=== PATIENT | female | born 1955 | race Caucasian/White ===

== ENCOUNTER 2016-11-06 12:28 | Inpatient (IN) ==
[2016-11-06] MEDS ORDERED: ASPIRIN PO STA (14:19)
[2016-11-06] MEDS ORDERED: NITROGLYCERIN TOP ONE (14:21)
[2016-11-06 14:52] LABS: ALLEN TEST YES; BE -0.8 mmoll (-3.0-3.0); BLOOD TYPE ARTERIAL; DRAW SITE R RADIAL; METHB 0.7 % (0.0-1.5); O2(CT) 16.5 mL/dL (15.0-23.0); PCO2(98.6) 41 mmHg (35-45); PO2(98.6) 52 mmHg (60-100); SAMPLE BLOOD; SAO2 89.1 % (95.0-100.0); THB 13.6 g/dL (11.5-17.4); pH(98.6) 7.38 (7.35-7.45)
[2016-11-06 14:54] LABS: MODALITY CANNULA
[2016-11-06] MEDS: PROTONIX IV SCH (15:22)
[2016-11-06] MEDS: SODIUM CHLORIDE 0.9% INJ SCH (15:22)
[2016-11-06] MEDS: LOVENOX SUBQ SCH (15:22)
[2016-11-06] MEDS: MORPHINE IV PRN ×2 (15:22→19:28)
[2016-11-06 16:20] LABS: MANUAL DIFF NEEDED? NO
[2016-11-06 16:29] LABS: BASO% 0.2 % (0.0-0.8); EOS# 0.02 X1000 (0.0-0.7); EOS% 0.2 % (0.0-10.0); HEMATOCRIT 38.2 % (37.0-47.0); HEMOGLOBIN 12.7 g/dL (12.0-16.0); IMM GRAN# 0.05 X1000 (0.0-0.04); IMM GRAN% 0.4 % (0.0-0.5); LYMPH# 1.33 X1000 (1.2-3.4); LYMPH% 10.6 % (20.5-51.1); MCH 30.2 PG (27-31); MCHC 33.2 g/dL (33-37); MCV 90.7 FL (81-99); MONO# 0.82 X1000 (0.11-0.59); MONO% 6.5 % (1.7-9.3); MPV 8.9 FL (7.4-10.4); NEUT% 82.1 % (42.2-75.2); PLT 316 X1000 (130-400); RBC 4.21 XMIL (4.2-5.4)
[2016-11-06 16:36] LABS: INR 1.02; PROTIME 10.7 Seconds (9.2-11.7)
[2016-11-06 16:42] LABS: AGAP 18; ALBUMIN 3.9 g/dL (3.5-5.0); ALKALINE PHOSPHATASE 92 U/L (32-104); BUN 10 mg/dL (8-22); CALCIUM 9.4 mg/dL (8.8-10.2); CHLORIDE 99 mmol/L (98-107); CK PROFILE 114 U/L (24-173); COSMO 281; GOT 20 U/L (10-30); GPT 16 U/L (10-36); MAGNESIUM 1.4 mg/dL (1.5-2.7); POTASSIUM 4.1 mmol/L (3.5-5.1); SODIUM 139 mmol/L (136-145); TCO2 22 mmol/L (25-35); TOTAL BILIRUBIN 0.23 mg/dL (0.20-1.00); TOTAL PROTEIN 7.3 g/dL (6.3-8.3)
[2016-11-06] MEDS: LOPRESSOR IV SCH ×2 (17:42→17:43)
[2016-11-06] MEDS ORDERED: MAGNESIUM SULFATE 2 GM/S.W.I. 2 GM/50 ML IVPB IV ONE (21:16)
[2016-11-06] MEDS: DESYREL PO SCH (21:18)
[2016-11-06] MEDS: NEURONTIN PO SCH (21:18)
[2016-11-06] MEDS: REMERON PO SCH (21:18)
[2016-11-06] MEDS: TOPROL XL PO SCH (21:18)
[2016-11-06] MEDS: HUMULIN R SUBQ SCH (22:54)
[2016-11-06] MEDS: NICODERM PATCH TD SCH (23:08)
[2016-11-07] MEDS: MORPHINE IV PRN ×6 (00:02→21:08)
[2016-11-07] MEDS: LOVENOX SUBQ SCH ×2 (02:18→13:51)
[2016-11-07 05:06] LABS: MANUAL DIFF NEEDED? NO
[2016-11-07 05:10] LABS: BASO% 0.4 % (0.0-0.8); EOS# 0.05 X1000 (0.0-0.7); EOS% 0.5 % (0.0-10.0); HEMATOCRIT 38.8 % (37.0-47.0); HEMOGLOBIN 12.9 g/dL (12.0-16.0); IMM GRAN# 0.03 X1000 (0.0-0.04); IMM GRAN% 0.3 % (0.0-0.5); LYMPH# 1.56 X1000 (1.2-3.4); LYMPH% 15.5 % (20.5-51.1); MCH 30.5 PG (27-31); MCHC 33.2 g/dL (33-37); MCV 91.7 FL (81-99); MONO# 0.68 X1000 (0.11-0.59); MONO% 6.8 % (1.7-9.3); MPV 8.8 FL (7.4-10.4); NEUT% 76.5 % (42.2-75.2); PLT 367 X1000 (130-400); RBC 4.23 XMIL (4.2-5.4)
[2016-11-07 05:36] LABS: AGAP 19; BUN 7 mg/dL (8-22); CALCIUM 9.4 mg/dL (8.8-10.2); CHLORIDE 96 mmol/L (98-107); CK PROFILE 171 U/L (24-173); COSMO 283; HDL 87 mg/dL (45-65); LDL 101 mg/dL; POTASSIUM 3.9 mmol/L (3.5-5.1); SODIUM 141 mmol/L (136-145); TCO2 26 mmol/L (25-35); TRIGLYCERIDES 186 mg/dL (35-135); VLDL 37 mg/dL
[2016-11-07 06:02] LABS: ALLEN TEST YES; BE 3.8 mmoll (-3.0-3.0); BLOOD TYPE ARTERIAL; DRAW SITE R RADIAL; METHB 0.9 % (0.0-1.5); O2(CT) 16.6 mL/dL (15.0-23.0); PCO2(98.6) 49 mmHg (35-45); PO2(98.6) 67 mmHg (60-100); SAMPLE BLOOD; SAO2 93.4 % (95.0-100.0); THB 12.9 g/dL (11.5-17.4); pH(98.6) 7.39 (7.35-7.45)
[2016-11-07 06:03] LABS: MODALITY CANNULA
[2016-11-07] MEDS: HUMULIN R SUBQ SCH ×4 (06:04→21:09)
[2016-11-07] MEDS: TOPROL XL PO SCH ×2 (08:56→21:08)
[2016-11-07] MEDS: VICON-C PO SCH (08:56)
[2016-11-07] MEDS: NICODERM PATCH TD SCH (08:56)
[2016-11-07] MEDS: NEURONTIN PO SCH ×2 (08:57→21:08)
[2016-11-07] MEDS ORDERED: DOBUTAMINE 250 MG/D5W 250 MG/250 ML IV.SOLN ONE (10:29)
[2016-11-07] MEDS ORDERED: ATROPINE SYRINGE ONE (11:20)
[2016-11-07] MEDS: PROTONIX IV SCH (13:51)
[2016-11-07] MEDS: DESYREL PO SCH (21:08)
[2016-11-07] MEDS: REMERON PO SCH (21:08)
[2016-11-07] MEDS ORDERED: ZOFRAN ODT PO PRN (21:21)
[2016-11-07] MEDS ORDERED: ZOFRAN ONE (21:27)
[2016-11-08] MEDS: MORPHINE IV PRN ×6 (01:32→22:58)
[2016-11-08] MEDS: LOVENOX SUBQ SCH (01:33)
[2016-11-08] MEDS: HUMULIN R SUBQ SCH ×4 (06:06→21:02)
[2016-11-08] MEDS: NICODERM PATCH TD SCH (08:22)
[2016-11-08] MEDS: VICON-C PO SCH (08:22)
[2016-11-08] MEDS: NEURONTIN PO SCH ×2 (08:22→20:57)
[2016-11-08] MEDS: TOPROL XL PO SCH ×2 (08:22→20:57)
[2016-11-08] MEDS: LEVAQUIN 500 MG/D5W 500 MG/100 ML IVPB IV SCH (10:06)
[2016-11-08] MEDS: SODIUM CHLORIDE 0.9% INJ SCH (14:49)
[2016-11-08] MEDS: PROTONIX IV SCH (14:49)
[2016-11-08] MEDS: VENTOLIN HFA INH PRN (16:11)
[2016-11-08] MEDS: GLUCOPHAGE PO SCH (17:27)
[2016-11-08] MEDS ORDERED: ZOFRAN ONE (20:52)
[2016-11-08] MEDS: REMERON PO SCH (20:56)
[2016-11-08] MEDS: CATAPRES PO SCH (20:57)
[2016-11-08] MEDS: DESYREL PO SCH (20:57)
[2016-11-08] MEDS: SOLU-MEDROL IV SCH (20:57)
[2016-11-08] MEDS: TRANDATE PO SCH (20:57)
[2016-11-08] MEDS: ZOLOFT PO SCH (20:57)
[2016-11-09] MEDS: MORPHINE IV PRN ×6 (03:03→23:19)
[2016-11-09] MEDS: HUMULIN R SUBQ SCH ×4 (06:48→21:06)
[2016-11-09] MEDS: BREO ELLIPTA 100/25 MCG INH INH SCH (07:50)
[2016-11-09] MEDS: VENTOLIN HFA INH PRN (07:50)
[2016-11-09] MEDS: SPIRIVA INH SCH (07:51)
[2016-11-09] MEDS: SOLU-MEDROL IV SCH ×2 (08:46→21:04)
[2016-11-09] MEDS: NEURONTIN PO SCH ×2 (08:46→21:04)
[2016-11-09] MEDS: ADALAT CC PO SCH (08:46)
[2016-11-09] MEDS: JANUVIA PO SCH (08:47)
[2016-11-09] MEDS: LOVENOX SUBQ SCH (08:48)
[2016-11-09] MEDS: TOPROL XL PO SCH ×2 (08:48→21:04)
[2016-11-09] MEDS: NICODERM PATCH TD SCH (08:48)
[2016-11-09] MEDS: VICON-C PO SCH (08:48)
[2016-11-09] MEDS: GLUCOPHAGE PO SCH ×2 (08:48→18:12)
[2016-11-09] MEDS: LEVAQUIN 500 MG/D5W 500 MG/100 ML IVPB IV SCH (08:48)
[2016-11-09] MEDS: CATAPRES PO SCH ×2 (08:48→21:05)
[2016-11-09] MEDS: TRANDATE PO SCH ×2 (08:48→21:04)
[2016-11-09] MEDS: ASPIRIN EC PO SCH (08:48)
[2016-11-09] MEDS: LOXITANE PO SCH (08:49)
[2016-11-09] MEDS: TESSALON PO SCH ×2 (15:36→21:09)
[2016-11-09] MEDS: SODIUM CHLORIDE 0.9% INJ SCH (15:37)
[2016-11-09] MEDS: PROTONIX IV SCH (15:37)
[2016-11-09] MEDS: DESYREL PO SCH (21:04)
[2016-11-09] MEDS: ZOLOFT PO SCH (21:04)
[2016-11-09] MEDS: REMERON PO SCH (21:04)
[2016-11-10] MEDS: MORPHINE IV PRN ×5 (03:40→20:49)
[2016-11-10] MEDS: HUMULIN R SUBQ SCH ×4 (06:14→20:49)
[2016-11-10] MEDS: GLUCOPHAGE PO SCH ×2 (07:51→16:40)
[2016-11-10] MEDS: JANUVIA PO SCH (07:59)
[2016-11-10] MEDS: NICODERM PATCH TD SCH (07:59)
[2016-11-10] MEDS: VICON-C PO SCH (07:59)
[2016-11-10] MEDS: CATAPRES PO SCH ×2 (07:59→20:49)
[2016-11-10] MEDS: ADALAT CC PO SCH (07:59)
[2016-11-10] MEDS: LEVAQUIN 500 MG/D5W 500 MG/100 ML IVPB IV SCH ×2 (07:59→08:42)
[2016-11-10] MEDS: SOLU-MEDROL IV SCH ×2 (07:59→20:49)
[2016-11-10] MEDS: TESSALON PO SCH ×3 (07:59→16:40)
[2016-11-10] MEDS: ASPIRIN EC PO SCH (07:59)
[2016-11-10] MEDS: NEURONTIN PO SCH ×2 (07:59→20:49)
[2016-11-10] MEDS: LOXITANE PO SCH (08:00)
[2016-11-10] MEDS: LOVENOX SUBQ SCH (08:00)
[2016-11-10] MEDS: TOPROL XL PO SCH ×2 (08:00→20:49)
[2016-11-10] MEDS: TRANDATE PO SCH ×2 (08:00→20:48)
[2016-11-10] MEDS: SPIRIVA INH SCH (08:09)
[2016-11-10] MEDS: BREO ELLIPTA 100/25 MCG INH INH SCH (08:09)
[2016-11-10] MEDS: PROTONIX IV SCH (13:49)
[2016-11-10] MEDS: REMERON PO SCH (20:49)
[2016-11-10] MEDS: ZOLOFT PO SCH (20:49)
[2016-11-10] MEDS: DESYREL PO SCH (20:49)
[2016-11-10] MEDS: VENTOLIN HFA INH PRN (23:29)
[2016-11-11] MEDS: MORPHINE IV PRN ×2 (01:01→05:09)
[2016-11-11] MEDS: HUMULIN R SUBQ SCH (06:11)
[2016-11-11] MEDS: SPIRIVA INH SCH (07:44)
[2016-11-11] MEDS: BREO ELLIPTA 100/25 MCG INH INH SCH (07:44)
[2016-11-11] MEDS: VENTOLIN HFA INH PRN (07:44)
[2016-11-11] MEDS: LOXITANE PO SCH (08:06)
[2016-11-11] MEDS: JANUVIA PO SCH (08:07)
[2016-11-11] MEDS: TESSALON PO SCH (08:08)
[2016-11-11] MEDS: NEURONTIN PO SCH (08:09)
[2016-11-11] MEDS: ASPIRIN EC PO SCH (08:09)
[2016-11-11] MEDS: GLUCOPHAGE PO SCH (08:09)
[2016-11-11] MEDS: VICON-C PO SCH (08:09)
[2016-11-11] MEDS: LOVENOX SUBQ SCH (08:10)
[2016-11-11] MEDS: SOLU-MEDROL IV SCH (08:10)
[2016-11-11] MEDS: NICODERM PATCH TD SCH (08:10)
[2016-11-11] MEDS: LEVAQUIN 500 MG/D5W 500 MG/100 ML IVPB IV SCH (08:17)
[2016-11-11] MEDS: ADALAT CC PO SCH (08:20)
[2016-11-11] MEDS: TOPROL XL PO SCH (08:20)
[2016-11-11] MEDS: TRANDATE PO SCH (08:20)
[2016-11-11] MEDS: CATAPRES PO SCH (08:20)
[2016-12-12 09:14] VITALS: BP 152/98
== END 2016-11-11 10:30 | disposition home or self-care (01) ==
LOC: 3S 12:42
PROVIDERS: ADMIT Internal Medicine; ATTEND Internal Medicine

== ENCOUNTER 2016-11-26 11:26 | Inpatient (IN) ==
[2016-11-26] MEDS ORDERED: MORPHINE IV PRN ×2 (11:49→16:33)
[2016-11-26] MEDS: DUONEB (A & A) INH PRN ×4 (12:32→23:05)
--- NOTE | 2016-11-26 12:32 | Diag Imaging Result Doc PS360 ---
EXAM: CHEST-1 VIEW HISTORY: chest pain TECHNIQUE: Portable AP 11/09/2016 COMPARISON: None. FINDINGS: There are infiltrates in the lower left lung. These markings are more pronounced than on the prior study. The heart is not enlarged. Right lung is clear. No pleural effusions identified. IMPRESSION: Left basilar infiltrates superimposed upon fibrosis or atelectasis. Follow-up and lateral recommended.. Electronically signed by Sami Figueroa 11/26/2016 12:30 PM
[2016-11-26 12:39] LABS: MANUAL DIFF NEEDED? NO
[2016-11-26 12:47] LABS: BASO% 0.2 % (0.0-0.8); EOS% 0.6 % (0.0-10.0); HEMOGLOBIN 11.7 g/dL (12.0-16.0); IMM GRAN# 0.08 X1000 (0.0-0.04); IMM GRAN% 0.5 % (0.0-0.5); LYMPH# 1.29 X1000 (1.2-3.4); LYMPH% 8.2 % (20.5-51.1); MCH 29.9 PG (27-31); MCHC 32.5 g/dL (33-37); MCV 92.1 FL (81-99); MONO# 0.89 X1000 (0.11-0.59); MONO% 5.6 % (1.7-9.3); MPV 9.5 FL (7.4-10.4); NEUT% 84.9 % (42.2-75.2); PLT 318 X1000 (130-400); RBC 3.91 XMIL (4.2-5.4)
[2016-11-26 12:53] LABS: AGAP 16; ALBUMIN 3.9 g/dL (3.5-5.0); ALKALINE PHOSPHATASE 91 U/L (32-104); BUN 12 mg/dL (8-22); CALCIUM 9.1 mg/dL (8.8-10.2); CHLORIDE 90 mmol/L (98-107); COSMO 266; GOT 26 U/L (10-30); GPT 13 U/L (10-36); POTASSIUM 4.7 mmol/L (3.5-5.1); SODIUM 127 mmol/L (136-145); TCO2 21 mmol/L (25-35); TOTAL BILIRUBIN 0.16 mg/dL (0.20-1.00); TOTAL PROTEIN 6.7 g/dL (6.3-8.3)
[2016-11-26] MEDS ORDERED: ASPIRIN PO SCH (13:00)
[2016-11-26] MEDS ORDERED: ASPIRIN ONE (13:06)
[2016-11-26] MEDS: ASPIRIN EC PO SCH (13:17)
--- NOTE | 2016-11-26 13:55 | EKG Report ---
Test Performed on : 11/26/2016 11:38:16 AM Test Reason : chestpain Blood Pressure : / mmHG Vent. Rate : 080 BPM Atrial Rate : 080 BPM P-R Int : 204 ms QRS Dur : 106 ms QT Int : 372 ms P-R-T Axes : 077 057 089 degrees QTc Int : 429 ms Normal sinus rhythm. T wave abnormality, consider lateral ischemia Abnormal ECG When compared with ECG of 10-NOV-2016 17:07, No significant change was found Confirmed by Obed Barfield MD ([id number]) on 11/26/2016 8:37:39 PM
--- NOTE | 2016-11-26 16:04 | CONSULTATION ---
DATE OF CONSULTATION: 11/26/2016 INDICATION FOR THE CONSULTATION: Chest pain. HISTORY OF PRESENT ILLNESS: Ms. Pemberton is a 61-year-old white female with a history of hypertension and diabetes. She presented to Dr. José's office today with complaints of chest discomfort, recent bouts of subjective fevers at home as well as productive cough for the last 2-3 days. She reports an admission earlier in this month with similar complaints in which she had a myocardial perfusion scan as well as an echocardiogram performed that were unremarkable. Here she has had a chest x-ray that shows what appears to be some left basilar infiltrates in addition to an elevated white count. She has a significant history of COPD. She denies any orthopnea. She denies any exertional chest discomfort. PAST MEDICAL HISTORY: 1. Significant for COPD. 2. History of metabolic syndrome. 3. Hypertension. 4. Diabetes. 5. Depression/anxiety. 6. Reflux disease. 7. Hyperlipidemia. 8. Chronic back pain. SOCIAL HISTORY: She smokes roughly a pack a day and has so for about 40 years. No alcohol use. FAMILY HISTORY: Significant for hypertension. REVIEW OF SYSTEMS: A 10 system review of systems is negative except for those things mentioned in HPI. PHYSICAL EXAMINATION: Heart rate most recently is 64. She has been afebrile during this hospitalization. Her most recent blood pressure reading is 131/71.General: She is in no acute distress. HEENT: Oropharynx is moist. Poor dentition. Eye examination is pink conjunctivae, white sclerae. Neck: Examination shows no obvious thyromegaly or thyroid tenderness. Cardiovascular: She sounds to be in a regular rate and rhythm. She has no murmurs, she has no S3. No lower extremity edema. Chest: Exam is significant for fairly prominent bilateral end- expiratory wheezes with some mild left basilar rales. No increased work of breathing. Abdomen: Soft, nontender, nondistended. She has no obvious organomegaly. Skin Exam: Warm and dry throughout without any rashes. Neurologic: Moving all extremities well. Cranial nerves 2 through 12 are intact without any sensation deficits. Psychiatric: Alert, oriented, pleasant. She has normal mood and affect. PERTINENT DATA: Her chest x-ray demonstrates a left basilar infiltrate superimposed upon a fibrotic area or atelectatic area. Nuclear scan from last hospitalization on 11/06/2016 demonstrates a normal ejection fraction, no evidence of ischemic changes identified, no evidence of transient ischemic dilatation. Her echo at that time showed what appeared to be normal LV volumes, no significant RV dilatation, EFs of 68, no segmental abnormalities. Relatively unremarkable study overall. Her EKG this visit shows sinus rhythm, some mild nonspecific ST-T changes in the lateral leads but there is a significant amount of baseline sway there. Her EKG from November 10 shows sinus rhythm, no signs of abnormalities. Her laboratory data here shows a white count of 15.7, hematocrit 36, platelet count 318,000. She does have a left shift with 85% neutrophils. Sodium is 127, potassium is 4.7. Her BUN is 12, creatinine 0.9. Her cardiac enzymes are negative. Her proBNP is 203. This falls within the normal range. ASSESSMENT: Patient with presenting chest pain with cough, subjective fevers, and a left-sided infiltrate, and an elevated white count. PLAN: Patient seems most likely to have an infectious source of her current symptoms. She has negative cardiac enzymes and normal BNP. Her EKG does not seem to show any significant abnormalities and review of her echo shows a preserved ejection fraction with no significant wall motion abnormalities. This was a limited study done on this visit. Presently, I think it is reasonable to continue to trend her cardiac enzymes but right now again, the most likely source of her issues seems to be infectious. She is on aspirin which I think is reasonable. I have no further recommendations at this time. cc: MD Ayden Muse MD
[2016-11-26] MEDS ORDERED: PNEUMOVAX 23 IM ONE (17:30)
[2016-11-26] MEDS ORDERED: SENOKOT PO PRN (18:32)
[2016-11-26] MEDS ORDERED: COLACE PO PRN (18:32)
[2016-11-26] MEDS ORDERED: VENTOLIN HFA INH PRN (18:32)
[2016-11-26] MEDS: MYCOSTATIN SUSP PO SCH ×3 (19:43→23:30)
[2016-11-26] MEDS: NS 1,000 ML IV SCH (19:45)
[2016-11-26] MEDS: SOLU-MEDROL IV SCH (19:46)
[2016-11-26] MEDS: ROCEPHIN 1 GM in NS 50 ML IV SCH (19:46)
[2016-11-26] MEDS: MORPHINE IV PRN (20:34)
[2016-11-26] MEDS: REMERON PO SCH (20:37)
[2016-11-26] MEDS: TRANDATE PO SCH (20:37)
[2016-11-26] MEDS: CATAPRES PO SCH (20:37)
[2016-11-26] MEDS: NEURONTIN PO SCH (20:38)
[2016-11-26] MEDS: PROCARDIA ER PO SCH (20:38)
[2016-11-26] MEDS: PROTONIX IV SCH (20:39)
[2016-11-26] MEDS: SODIUM CHLORIDE 0.9% INJ SCH (20:39)
[2016-11-26] MEDS: ZOLOFT PO SCH (20:39)
[2016-11-26] MEDS: BUSPAR PO SCH (20:39)
[2016-11-26] MEDS: ZITHROMAX 500 MG/NS 500 MG/250 ML IVPB IV SCH (20:40)
[2016-11-26] MEDS: GLUCOPHAGE PO SCH (20:45)
--- NOTE | 2016-11-26 22:35 | ECHO REPORT ---
ORDER DATE: 11/26/2016 INTERPRETING PHYSICIAN: Dr. Alba REQUESTING PHYSICIAN: Dr. José CLINICAL INDICATIONS: A 61-year-old female with chest pain, pneumonia. Study performed with Definity for evaluation of left ventricular function. This is a limited study. M-MODE MEASUREMENTS: Right ventricle: cm. Left ventricle end diastole: 4.3 cm. Left ventricle end systole: 2.5 cm. Posterior wall: 1.0 cm. Interventricular septum: 1.1 cm. Left atrium: cm. Aortic root: cm. SUMMARY OF 2-DIMENSIONAL IMAGING: The left ventricle is normal in size and function. Ejection fraction estimated at 73%. No wall motion abnormality is noted. With Definity injection, visualization was enhanced. The function remains excellent. The mitral valve appears to be grossly normal. The tricuspid valve appears to be also grossly normal. The right ventricle is not dilated. There is no pericardial effusion. The inferior vena cava was not seemingly dilated. IMPRESSION: In summary, this study shows excellent left ventricular systolic function. Ejection fraction 73% with no wall motion abnormality. Definity was utilized to enhance visualization of endocardium. cc: MD Toshia Frank PA Jagan Reddy, MD
[2016-11-27] MEDS: MORPHINE IV PRN ×6 (01:14→22:37)
--- NOTE | 2016-11-27 02:50 | HISTORY AND PHYSICAL ---
CHIEF COMPLAINT: Chest pain, shortness of breath, oral thrush. HISTORY OF PRESENT ILLNESS: She is a 61-year-old pleasant white female, recently discharged from the hospital, doing well until one day ago was brought in by the daughter with shortness of breath and chest pain. In my office, she is tachycardic, tachypneic, with extensive oral thrush noted. She had an abnormal EKG, subsequent negative cardiac workup and stress test during last admission. The patient was admitted to the hospital with acute COPD exacerbation, possible left lower lobe infiltrate, and also followup on this chest pain going to the left arm. If there are any changes, I would consider left heart catheterization. As a result, a hospital admission was warranted. PAST MEDICAL HISTORY: Left breast cancer since 1992, COPD, depression with anxiety, diabetes, GERD, hypertension, hyperlipidemia. PAST SURGICAL HISTORY: Tonsillectomy, gastric bypass surgery, cholecystectomy, complete hysterectomy, C-sections x2, left breast mastectomy for breast cancer in 1992. MEDICATIONS: 1. Aspirin 325 daily. 2. Breo 1 puff daily. 3. Incruse 1 puff in the evening. 4. Zanaflex 4 mg p.o. b.i.d. 5. Clonidine 0.3 p.o. b.i.d. 6. Nifedipine 60 mg daily. 7. Prilosec 40 daily. 8. Trazodone 100 daily. 9. Zoloft 150 daily. 10. Neurontin 300 p.o. b.i.d. 11. Labetalol 100 p.o. b.i.d. 12. Januvia 100 mg daily. 13. Remeron 30 mg daily. 14. Loxapine 35 daily. 15. Metformin 1000 p.o. b.i.d. ALLERGIES: Not known. SOCIAL HISTORY: , 2 kids. Lives in [place]. Smoking 1 pack a day for 40 years. No drug abuse. No alcohol. FAMILY HISTORY: Mom of stroke at 73. Father of prostate cancer at 78. Siblings: Sister had colon cancer. HEALTH MAINTENANCE: Flu vaccine in 2016. Pneumococcal vaccine in 2016. Mammography in July 2016. Colonoscopy in 2015. REVIEW OF SYSTEMS: HEENT: No headache. No vision problem. No earache. No sore throat. Had an oral thrush. Neck: No goiter. No lymphadenopathy. Cardiopulmonary: Chest pain going to the left arm. Shortness of breath, PND, orthopnea. Gastrointestinal: No nausea, vomiting, or abdominal pain. Genitourinary: No history of hesitancy, frequency. No dysuria. Neurologic: No focal symptoms or weakness. PHYSICAL EXAMINATION: VITAL SIGNS: He is afebrile. Vitals are stable. 5 feet 5 inches, 150 pounds. HEENT: Atraumatic, normocephalic. Pupils equal, reactive to light. TMs are normal. Oral thrush noted. NECK: Supple. No lymphadenopathy. JVD is elevated. CHEST: Bilateral air entry, with crackles in the left base. HEART: Tachycardic. ABDOMEN: Belly is soft, obese, nontender, protuberant. No masses palpable. EXTREMITIES: No peripheral edema or cyanosis. NEUROLOGIC: No obvious neurological deficits. INVESTIGATIONS: White cell count 15, hematocrit 36, platelets 318,000. SMA-7: Sodium 127, potassium 4.7, chloride 98, BUN 12, creatinine 0.9, glucose 295. Cardiac enzymes: ProBNP was normal. Chest x-ray: Possible infiltrate in the left lower lobe. EKG: Normal sinus, nothing acute. ASSESSMENT AND PLAN: 1. A 61-year-old white female with known chronic obstructive pulmonary disease, and oxygen dependent, admitted to the hospital with acute chronic obstructive pulmonary disease exacerbation, possible pneumonia. Plan is IV antibiotics, with Zithromax and ceftriaxone and bronchodilators. Continue on Breo and Incruse. 2. Chest pain. Negative cardiac workup recently. If she continues to have symptomatic chest pain, consider left heart catheterization. 3. Hyponatremia. IV fluids. 4. Type 2 diabetes, on metformin. Sliding scale, with insulin coverage. We will closely monitor blood sugars while she is on steroids. 5. Reconcile home medicines. 6. DVT and GI prophylaxis with Lovenox and Protonix respectively. 7. History of left breast cancer on the left side. No blood pressure or IV on the left side. 8. Will follow up. cc: Ayden José MD
[2016-11-27] MEDS: DUONEB (A & A) INH PRN ×5 (03:10→19:29)
[2016-11-27] MEDS: SOLU-MEDROL IV SCH ×3 (04:29→20:57)
[2016-11-27] MEDS: BREO ELLIPTA 100/25 MCG INH INH SCH (08:20)
[2016-11-27] MEDS: NS 1,000 ML IV SCH ×2 (08:58→20:50)
[2016-11-27] MEDS: NEURONTIN PO SCH ×3 (08:59→20:51)
[2016-11-27] MEDS: BUSPAR PO SCH ×2 (08:59→20:51)
[2016-11-27] MEDS: ASPIRIN EC PO SCH (08:59)
[2016-11-27] MEDS: PROCARDIA ER PO SCH ×2 (08:59→20:51)
[2016-11-27] MEDS: JANUVIA PO SCH (08:59)
[2016-11-27] MEDS: GLUCOPHAGE PO SCH ×2 (08:59→16:21)
[2016-11-27] MEDS: VICON-C PO SCH (08:59)
[2016-11-27] MEDS: CATAPRES PO SCH ×2 (08:59→20:51)
[2016-11-27] MEDS ORDERED: ASPIRIN EC PO SCH (09:00)
[2016-11-27] MEDS: TRANDATE PO SCH ×2 (09:00→21:01)
[2016-11-27] MEDS: LOVENOX SUBQ SCH (09:00)
[2016-11-27] MEDS: MYCOSTATIN SUSP PO SCH ×4 (09:00→20:50)
[2016-11-27] MEDS: LOXITANE PO SCH (09:00)
--- NOTE | 2016-11-27 09:32 | PROGRESS NOTE ---
DATE: 11/27/2016 SUBJECTIVE: Complains of chest pain, requiring more pain medicine. The patient was seen by Dr. Lozada. REVIEW OF SYSTEMS: Cough, wheezing. PHYSICAL EXAMINATION: Vital Signs: She is afebrile. Vitals are stable. 3% nasal cannula,89%. I's and O's positive 1460 mL. HEENT: Within normal limits. Oral thrush is improving. Chest: Rhonchi on the left side. Heart: Sounds are regular. Abdomen: Belly is soft. Abdominal scar present right upper quadrant midline. No obvious neurological deficits. INVESTIGATIONS: None reported. ASSESSMENT AND PLAN: 1. Chest pain noncardiac. Previous workup was negative. Dr. Lozada recommended no left heart catheterization. Continue on medical management for COPD. Will follow up on the labs in the morning. 2. Chronic tobacco abuse. Quit smoking. Nicotrol patches. 3. COPD with left lower lobe pneumonia. Continue IV antibiotics, IV steroids, bronchodilators. 4. DVT, GI prophylaxis. As per the order sheet. Level of documentation 25 minutes. cc: Ayden José MD
[2016-11-27] MEDS: HUMULIN R SUBQ SCH ×3 (10:41→20:52)
[2016-11-27] MEDS: NICODERM PATCH TD PRN (10:43)
[2016-11-27] MEDS: INCRUSE ELLIPTA INH SCH (19:29)
[2016-11-27] MEDS: PROTONIX IV SCH (20:48)
[2016-11-27] MEDS: ROCEPHIN 1 GM in NS 50 ML IV SCH (20:49)
[2016-11-27] MEDS: ZITHROMAX 500 MG/NS 500 MG/250 ML IVPB IV SCH (20:50)
[2016-11-27] MEDS: ZOLOFT PO SCH (20:51)
[2016-11-27] MEDS: REMERON PO SCH (20:51)
[2016-11-28] MEDS: MORPHINE IV PRN ×6 (03:14→22:23)
[2016-11-28] MEDS: SOLU-MEDROL IV SCH ×4 (03:14→20:45)
[2016-11-28 05:16] LABS: BASO% 0.1 % (0.0-0.8); HEMATOCRIT 32.6 % (37.0-47.0); HEMOGLOBIN 10.6 g/dL (12.0-16.0); IMM GRAN# 0.11 X1000 (0.0-0.04); IMM GRAN% 0.8 % (0.0-0.5); LYMPH# 0.71 X1000 (1.2-3.4); LYMPH% 5.3 % (20.5-51.1); MANUAL DIFF NEEDED? YES; MCH 30.2 PG (27-31); MCHC 32.5 g/dL (33-37); MCV 92.9 FL (81-99); MONO# 0.23 X1000 (0.11-0.59); MONO% 1.7 % (1.7-9.3); MPV 8.9 FL (7.4-10.4); NEUT% 92.1 % (42.2-75.2); PLT 279 X1000 (130-400); RBC 3.51 XMIL (4.2-5.4)
[2016-11-28 05:38] LABS: LYMPHS 4 % (21-51); MONO 1 % (1-9)
[2016-11-28 05:59] LABS: AGAP 12; BUN 23 mg/dL (8-22); CALCIUM 9.2 mg/dL (8.8-10.2); CHLORIDE 101 mmol/L (98-107); CK PROFILE 24 U/L (24-173); COSMO 291; POTASSIUM 5.4 mmol/L (3.5-5.1); SODIUM 139 mmol/L (136-145); TCO2 26 mmol/L (25-35)
[2016-11-28] MEDS: HUMULIN R SUBQ SCH ×4 (06:38→20:45)
[2016-11-28] MEDS: INCRUSE ELLIPTA INH SCH (07:39)
[2016-11-28] MEDS: BREO ELLIPTA 100/25 MCG INH INH SCH ×2 (07:40→19:15)
[2016-11-28] MEDS: DUONEB (A & A) INH PRN ×4 (07:40→19:36)
[2016-11-28] MEDS: TRANDATE PO SCH ×2 (08:05→20:47)
[2016-11-28] MEDS: NEURONTIN PO SCH ×3 (08:05→20:48)
[2016-11-28] MEDS: GLUCOPHAGE PO SCH ×2 (08:05→16:05)
[2016-11-28] MEDS: NICODERM PATCH TD PRN (08:05)
[2016-11-28] MEDS: JANUVIA PO SCH (08:05)
[2016-11-28] MEDS: MYCOSTATIN SUSP PO SCH ×4 (08:05→20:45)
[2016-11-28] MEDS: ASPIRIN EC PO SCH (08:05)
[2016-11-28] MEDS: LOXITANE PO SCH (08:06)
[2016-11-28] MEDS: BUSPAR PO SCH ×2 (08:06→20:49)
[2016-11-28] MEDS: PROCARDIA ER PO SCH ×2 (08:06→20:47)
[2016-11-28] MEDS: LOVENOX SUBQ SCH (08:06)
[2016-11-28] MEDS: VICON-C PO SCH (08:06)
[2016-11-28] MEDS: CATAPRES PO SCH ×2 (08:06→20:48)
[2016-11-28] MEDS: NS 1,000 ML IV SCH (08:07)
--- NOTE | 2016-11-28 08:47 | Diag Imaging Result Doc PS360 ---
EXAM: CHEST-2 VIEWS HISTORY: SOB TECHNIQUE: PA and Lateral chest x-ray COMPARISON: 11/26/2016 FINDINGS: There is increasing left lower lobe airspace disease and left pleural effusion compared with prior study. There are surgical clips anteriorly in the midline. There is some minimal strandy density at the right lung base. The pulmonary vasculature is not congested. There is cardiomegaly. IMPRESSION: Increasing left lower lobe consolidation and effusion. Minimal infiltrate right lung base. Electronically signed by Yaneth Aceves 11/28/2016 8:45 AM
[2016-11-28 09:24] LABS: ALLEN TEST YES; BE -2.1 mmoll (-3.0-3.0); BLOOD TYPE ARTERIAL; DRAW SITE R RADIAL; METHB 0.2 % (0.0-1.5); O2(CT) 14.1 mL/dL (15.0-23.0); PCO2(98.6) 47 mmHg (35-45); PO2(98.6) 62 mmHg (60-100); SAMPLE BLOOD; SAO2 93.2 % (95.0-100.0); THB 10.9 g/dL (11.5-17.4); pH(98.6) 7.32 (7.35-7.45)
[2016-11-28 09:25] LABS: MODALITY CANNULA
--- NOTE | 2016-11-28 18:57 | PROGRESS NOTE ---
DATE: 11/28/2016 SUBJECT: The patient is out of bed and smoking and eating very well. Pulse oximetry 80%. EXAMINATION: Vital signs: Afebrile. Vitals are stable. HEENT: Within normal limits. Neck: Supple. Lungs: Decreased breath sounds left base. Scattered wheezing. Belly: Soft. Multiple scars noted. Extremities: No peripheral edema, cyanosis. Neuro: No obvious neurological deficits. INVESTIGATIONS: CBC, white cell count 13, hematocrit 32, platelet 279,000. ABG pH is 7.32, pCO2 47, PO2 62. SMA 7. Sodium 139, potassium 5.4, chloride 101, BUN 23, creatinine 0.7, glucose 277. Cardiac enzymes are normal. ProBNP 1294. Chest x-ray left lower lobe consolidation. Blood cultures were negative. ASSESSMENT AND PLAN: 1. Chest pain ruled out for myocardial infarction. Previous cardiac workup was negative. The patient daughter wants left heart catheterization. Currently no signs of myocardial infarction. 2. Chronic obstructive pulmonary disease on oxygen with left lower lobe pneumonia. Continue IV ceftriaxone and Zithromax and decrease IV steroids. 3. Oral thrush better . Eating very well. Discontinue IV fluids. 4. Status post left breast mastectomy stable. 5. Deep vein thrombosis, gastrointestinal prophylaxis as per the order sheet. 6. Tobacco abuse. Nicotrol patches. 7. Will reassess on Thursday. Repeat the chest x-ray and CBC, SMA 7. Discussed with the family. LEVEL OF DOCUMENTATION: 25 minutes. cc: Ayden José MD
[2016-11-28] MEDS: ZITHROMAX 500 MG/NS 500 MG/250 ML IVPB IV SCH (20:44)
[2016-11-28] MEDS: SODIUM CHLORIDE 0.9% INJ SCH (20:47)
[2016-11-28] MEDS: PROTONIX IV SCH (20:47)
[2016-11-28] MEDS: REMERON PO SCH (20:48)
[2016-11-28] MEDS: ZOLOFT PO SCH (20:48)
[2016-11-29] MEDS: ROCEPHIN 1 GM in NS 50 ML IV SCH ×2 (00:11→20:14)
[2016-11-29] MEDS: MORPHINE IV PRN ×6 (02:51→22:34)
[2016-11-29] MEDS: SOLU-MEDROL IV SCH ×3 (03:45→20:14)
[2016-11-29] MEDS: HUMULIN R SUBQ SCH ×3 (06:39→16:06)
[2016-11-29] MEDS: DUONEB (A & A) INH PRN ×5 (07:55→23:20)
[2016-11-29] MEDS: INCRUSE ELLIPTA INH SCH (07:55)
[2016-11-29] MEDS: ASPIRIN EC PO SCH (08:04)
[2016-11-29] MEDS: BUSPAR PO SCH ×2 (08:04→20:16)
[2016-11-29] MEDS: CATAPRES PO SCH ×2 (08:04→20:16)
[2016-11-29] MEDS: NEURONTIN PO SCH ×3 (08:04→20:16)
[2016-11-29] MEDS: LOVENOX SUBQ SCH (08:04)
[2016-11-29] MEDS: GLUCOPHAGE PO SCH ×2 (08:04→16:06)
[2016-11-29] MEDS: JANUVIA PO SCH (08:04)
[2016-11-29] MEDS: VICON-C PO SCH (08:04)
[2016-11-29] MEDS: NICODERM PATCH TD PRN (08:04)
[2016-11-29] MEDS: TRANDATE PO SCH ×2 (08:04→20:15)
[2016-11-29] MEDS: LOXITANE PO SCH (08:05)
[2016-11-29] MEDS: MYCOSTATIN SUSP PO SCH ×4 (08:06→20:13)
[2016-11-29] MEDS: PROCARDIA ER PO SCH ×2 (08:06→20:16)
[2016-11-29] MEDS ORDERED: TYLENOL PO PRN (12:47)
--- NOTE | 2016-11-29 13:46 | PROGRESS NOTE ---
DATE: 11/29/2016 SUBJECTIVE: The patient remains stable. No significant complaints. OBJECTIVE: Vital Signs: Afebrile. Pulse 78, respirations 20, blood pressure 148/70, O2 saturation on 3 L 92% to 95%. Cardiovascular: RRR. Lungs: Crackles and rhonchi at the lung bases, left greater than right. Abdomen: Soft, protuberant nontender. Extremities: No calf tenderness, cords or edema. ASSESSMENT: 1. Bilateral pneumonia, left greater than right. 2. Chronic obstructive pulmonary disease. 3. Thrush. 4. Chest pains with previous workup in the last few days in the hospital. 5. Tobacco abuse. 6. Diabetes mellitus. 7. Hypertension. PLAN: Will repeat labs and chest x-ray in the morning. Continue IV antibiotics in the form of Rocephin and Zithromax. Continue nebulizer treatments, Breo and current regimen of IV steroids. Continue SSI on home regimen of diabetic medications. Continue nicotine patch and encourage her in smoking cessation. Continue Lovenox prophylaxis. Morphine if required for pain. cc: MD Ayden Alcantar MD
[2016-11-29] MEDS: SODIUM CHLORIDE 0.9% INJ SCH (20:15)
[2016-11-29] MEDS: PROTONIX IV SCH (20:15)
[2016-11-29] MEDS: ZOLOFT PO SCH (20:16)
[2016-11-29] MEDS: REMERON PO SCH (20:16)
[2016-11-30] MEDS: HUMULIN R SUBQ SCH ×6 (02:19→21:46)
[2016-11-30] MEDS: ZITHROMAX 500 MG/NS 500 MG/250 ML IVPB IV SCH ×2 (02:24→03:28)
[2016-11-30] MEDS: DUONEB (A & A) INH PRN ×4 (03:15→15:29)
[2016-11-30] MEDS: MORPHINE IV PRN ×4 (03:28→19:50)
[2016-11-30] MEDS ORDERED: FLUZONE QUAD 2017-2018 SYRINGE IM ONE (05:48)
[2016-11-30] MEDS: SOLU-MEDROL IV SCH ×3 (05:53→19:51)
[2016-11-30] MEDS: BREO ELLIPTA 100/25 MCG INH INH SCH (07:36)
[2016-11-30] MEDS: INCRUSE ELLIPTA INH SCH (07:36)
[2016-11-30] MEDS: NEURONTIN PO SCH ×4 (08:01→23:33)
[2016-11-30] MEDS: PROCARDIA ER PO SCH ×3 (08:01→23:34)
[2016-11-30] MEDS: BUSPAR PO SCH ×3 (08:01→23:31)
[2016-11-30] MEDS: ASPIRIN EC PO SCH (08:01)
[2016-11-30] MEDS: CATAPRES PO SCH ×3 (08:01→23:33)
[2016-11-30] MEDS: JANUVIA PO SCH (08:02)
[2016-11-30] MEDS: LOVENOX SUBQ SCH (08:02)
[2016-11-30] MEDS: TRANDATE PO SCH ×3 (08:02→23:33)
[2016-11-30] MEDS: LOXITANE PO SCH (08:02)
[2016-11-30] MEDS: MYCOSTATIN SUSP PO SCH ×5 (08:02→23:33)
[2016-11-30] MEDS: GLUCOPHAGE PO SCH ×2 (08:02→16:14)
[2016-11-30] MEDS: VICON-C PO SCH (08:02)
--- NOTE | 2016-11-30 10:06 | Diag Imaging Result Doc PS360 ---
EXAM: CHEST-2 VIEWS INDICATION: pna TECHNIQUE: 2 views COMPARISON: 11/28/2016 FINDINGS: Small left basilar pleural effusion with adjacent atelectasis and/or infiltrate is essentially stable. The mild linear opacity at the right lung base is approximately stable and probably represents mild atelectasis. No new consolidations are appreciated. Cardiac silhouette is stable. IMPRESSION: Stable chest. Electronically signed by Sabas Rice 11/30/2016 10:03 AM
--- NOTE | 2016-11-30 11:39 | PROGRESS NOTE ---
DATE: 11/30/2016 SUBJECTIVE: The patient is showing slow gradual improvement in breathing, still having some work of breathing. She is sitting up in the chair this morning. OBJECTIVE: Afebrile, pulse 65, respirations 20, blood pressure 168/72, O2 saturation on 3 L is 98%. Cardiovascular: Regular rate and rhythm. Lungs: Fairly clear. Extremities: No calf tenderness, cords or edema. DIAGNOSTIC DATA: Chest x-ray reveals some atelectasis on the right versus infiltrate, small left pleural effusion with atelectasis there and possible infiltrate. Blood sugars ranging in the 100s to low 200s. Blood cultures remain negative. ASSESSMENT: 1. Bilateral pneumonia. 2. Chronic obstructive pulmonary disease exacerbation. 3. Thrush. 4. Chest pains, asymptomatic currently. 5. Tobacco abuse. 6. Diabetes mellitus. 7. Hypertension. PLAN: Continue current treatments with IV Rocephin, Zithromax, nebulizer treatments, IV steroids and Breo. Continue SSI, nicotine patch. Lovenox for prophylaxis of DVT. If she continues to improve, possible discharge tomorrow with outpatient reevaluation of her lungs and x-rays in the long run. cc: MD Ayden Alcantar MD
[2016-11-30] MEDS: ROCEPHIN 1 GM in NS 50 ML IV SCH (19:51)
[2016-11-30] MEDS: PROTONIX IV SCH (19:51)
[2016-11-30] MEDS: SODIUM CHLORIDE 0.9% INJ SCH (19:51)
[2016-11-30] MEDS: ZOLOFT PO SCH ×2 (19:52→23:32)
[2016-11-30] MEDS: REMERON PO SCH ×2 (19:52→23:34)
[2016-11-30] MEDS: NICODERM PATCH TD PRN (21:49)
[2016-12-01] MEDS: MORPHINE IV PRN ×2 (00:12→04:26)
[2016-12-01] MEDS: ZITHROMAX 500 MG/NS 500 MG/250 ML IVPB IV SCH (02:49)
[2016-12-01] MEDS: SOLU-MEDROL IV SCH (04:26)
[2016-12-01] MEDS: HUMULIN R SUBQ SCH (06:27)
[2016-12-01 07:53] VITALS: BP 167/69
[2016-12-01] MEDS: GLUCOPHAGE PO SCH (08:39)
[2016-12-01] MEDS: CATAPRES PO SCH (08:39)
[2016-12-01] MEDS: PROCARDIA ER PO SCH (08:39)
[2016-12-01] MEDS: ASPIRIN EC PO SCH (08:40)
[2016-12-01] MEDS: BUSPAR PO SCH (08:40)
[2016-12-01] MEDS: TRANDATE PO SCH (08:40)
[2016-12-01] MEDS: JANUVIA PO SCH (08:40)
[2016-12-01] MEDS: NEURONTIN PO SCH (08:40)
[2016-12-01] MEDS: VICON-C PO SCH (08:40)
[2016-12-01] MEDS: LOVENOX SUBQ SCH (08:40)
[2016-12-01] MEDS: NICODERM PATCH TD PRN (08:50)
--- NOTE | 2016-12-02 19:18 | DISCHARGE SUMMARY ---
ADMISSION DATE: 11/26/2016 DISCHARGE DATE: 12/01/2016 DISCHARGING DIAGNOSIS: Acute shortness of breath due to left lower lobe pneumonia with chronic obstructive pulmonary disease exacerbation. SECONDARY DIAGNOSES: 1. Atypical chest pain. 2. Left breast cancer, stable since 1992. 3. Chronic tobacco abuse. 4. Depression with anxiety. 5. Type 2 diabetes. 6. Acid reflux disease. 7. Hypertension. 8. Hyperlipidemia. CONSULTS: Dr. Mateo Lozada. BRIEF HISTORY: Please see the H and P that was done on 11/26/2016. In brief, she is a 65-year- old pleasant white female, admitted to the hospital, readmitted with shortness of breath, cough, wheezing. Chest x-ray in my office showed left lower lobe pneumonia. She also has intermittent chest pain. HOSPITAL COURSE: In [facility]. 1. Chest pain. Follow up EKG nondiagnostic. Ruled out for ME by serial cardiac enzymes. Recent workup was negative. Limited echocardiogram did not show any wall motions. Dr. Lozada does not want any further intervention at this time based on the clinical objective findings. 2. Follow up chest x-ray left lower lobe pneumonia. Patient was started on oxygen, bronchodilators, IV steroids and IV antibiotics with Rocephin and Zithromax. Followup symptoms and signs were improved of consolidation in the left lower lobe. 3. Oral thrush. She was given nystatin. 4. Chronic tobacco abuse. Nicotine cessation program. At the time of discharge , patient was stable and she is also home oxygen dependent. LABS: CBC: White cell count 13, hematocrit 32, platelet count 279,000. D- dimer is 0.6. ABG pH is 7.32, pCO2 47, PO2 62 on 36%. Blood sugars are running 250 due to steroids. SMA 7: Sodium 139, potassium 5.4, chloride 101, BUN 23, creatinine 0.6, glucose 277, calcium 9.2. Cardiac enzymes are normal. Blood cultures were negative. DISCHARGE INSTRUCTIONS: 1. Pneumococcal vaccine 12/01/2016. 2. Oxygen 3 L. 3. Discontinue nicotine. 4. Metformin 1000 p.o. b.i.d. 5. Prilosec 40 daily. 6. Vitamin B 1 tablet daily. 7. Zoloft 150 daily. 8. [id number] at bedtime. 9. Clonidine 0.3 p.o. b.i.d. 10. Labetalol 100 p.o. b.i.d. 11. Januvia 100 daily. 12. Levaquin 500 daily for 7 days. 13. Medrol Dosepak as directed. 14. Zanaflex 4 mg p.o. b.i.d. 15. Incruse 1 puff daily. 16. Breo 1 puff in the morning. 17. Mirtazapine 30 mg daily. 18. BuSpar 15 p.o. b.i.d. 19. Nifedipine 60 p.o. b.i.d. 20. Aspirin 325 daily. 21. Colace 100 p.o. twice a day. 22. Neurontin 600 t.i.d. 23. Follow up in the office in 10 days. cc: MD Dr. Neville Cline
== END 2016-12-01 09:05 | disposition home or self-care (01) ==
LOC: 3S 16:05
PROVIDERS: ADMIT Internal Medicine; ATTEND Internal Medicine

== ENCOUNTER 2018-03-01 11:07 | Inpatient (IN) ==
[2018-03-01] MEDS ORDERED: DUONEB (A & A) INH ONE (11:43)
[2018-03-01] MEDS ORDERED: SOLU-MEDROL IV ONE (11:44)
[2018-03-01 12:05] LABS: ALLEN TEST YES; BE 1.2 mmoll (-3.0-3.0); BLOOD TYPE ARTERIAL; HCO3-(ACT) 25.6 mmoll (20.0-26.0); METHB 0.6 % (0.0-1.5); O2(CT) 10.8 mL/dL (15.0-23.0); PO2(98.6) 57 mmHg (60-100); SAMPLE BLOOD; SAO2 87.4 % (95.0-100.0); THB 9.5 g/dL (11.5-17.4); pH(98.6) 7.28 (7.35-7.45)
[2018-03-01 12:07] LABS: MODALITY VENTIMASK
[2018-03-01 12:08] LABS: O2HB 80.8 % (95.0-99.0); PCO2(98.6) 61 mmHg (35-45)
--- NOTE | 2018-03-01 12:12 | Diag Imaging Result Doc PS360 ---
EXAM: CHEST-PORTABLE 03/01/2018 HISTORY: resp failure TECHNIQUE: AP upright portable at 1155 COMMENT: The left pleural effusion present on 11/30/2016 is no longer present. There is increased interstitial markings generally. This was not the case on the previous study. IMPRESSION: Pulmonary edema plus minus pneumonia. Electronically signed by Kasi Collins 03/01/2018 12:10 PM
[2018-03-01 12:49] LABS: BASO# 0.03 X1000 (0.0-0.2); BASO% 0.3 % (0.0-0.8); EOS# 0.01 X1000 (0.0-0.7); EOS% 0.1 % (0.0-10.0); HEMATOCRIT 32.2 % (37.0-47.0); HEMOGLOBIN 9.4 g/dL (12.0-16.0); IMM GRAN# 0.12 X1000 (0.0-0.04); IMM GRAN% 1.1 % (0.0-0.5); LYMPH# 1.16 X1000 (1.2-3.4); LYMPH% 10.8 % (20.5-51.1); MCH 22.9 PG (27-31); MCHC 29.2 g/dL (33-37); MCV 78.3 FL (81-99); MONO# 0.57 X1000 (0.11-0.59); MONO% 5.3 % (1.7-9.3); MPV 9.5 FL (7.4-10.4); NEUT# 8.88 X1000 (1.4-6.5); NEUT% 82.4 % (42.2-75.2); PLT 280 X1000 (130-400); RBC 4.11 XMIL (4.2-5.4); RDW 19.5 % (11.5-14.5); WBC 10.77 X1000 (4.8-10.8)
--- NOTE | 2018-03-01 12:58 | PROVIDER DOCUMENTATION ---
This chart was entered by Kathy Mireles Scribe, acting as scribe for Garrison Asif MD. HPI-General Adult - General Chief Complaint: Shortness of Breath Stated Complaint: DIFFUCLTY BREATHING Time Seen by Provider: 03/01/18 11:39 Source: patient, EMS Allergies/Adverse Reactions: Patient Allergies Allergy/AdvReac Type Severity Reaction Status Date / Time ketorolac tromethamine * Allergy Mild NAUSEA Verified 04/16/17 15:58 [From Toradol] Home Medications: Home Medication List Medication Instructions Recorded Confirmed Last Taken Type Metformin [Glucophage] 1,000 mg PO BID 02/06/12 11/26/16 11/25/16 History Omeprazole 40 mg PO DAILY 02/06/12 11/26/16 11/25/16 History Sertraline [Zoloft] 150 mg PO QHS 02/06/12 11/26/16 11/25/16 History Vitamin B Complex [Bal B-100] 1 each PO DAILY 02/06/12 11/26/16 11/25/16 History Albuterol Sulfate [Ventolin Hfa] 1 puff INH PRN PRN 11/06/16 11/26/16 11/25/16 History Clonidine HCl 0.3 mg PO BID 11/06/16 11/26/16 11/25/16 History Labetalol HCl 100 mg PO BID 11/06/16 11/26/16 11/25/16 History Sitagliptin [Januvia] 100 mg PO DAILY 11/06/16 11/26/16 11/25/16 History Levofloxacin [Levaquin] 500 mg PO DAILY #7 tablet 11/11/16 11/26/16 11/25/16 Rx Aspirin EC 325 mg PO DAILY 11/26/16 11/26/16 11/25/16 History Buspirone HCl 15 mg PO BID 11/26/16 11/26/16 11/25/16 History Docusate Sodium 100 mg PO BID PRN 11/26/16 11/26/16 Unknown History Fluticasone/Vilant 100/25 INH 1 puff INH RTDAILY 11/26/16 11/26/16 11/25/16 History [Breo Ellipta 100/25 Mcg INH] Gabapentin [Neurontin] 600 mg PO TID 11/26/16 11/26/16 11/25/16 History Loxapine Succinate [Loxapine] 25 mg PO QHS 11/26/16 11/26/16 11/25/16 History Mirtazapine 30 mg PO QHS 11/26/16 11/26/16 11/25/16 History Nifedipine [Nifedipine ER] 60 mg PO BID 11/26/16 11/26/16 11/25/16 History Ondansetron HCl 4 mg PO TID PRN 11/26/16 11/26/16 Unknown History Sennosides [Senna Lax] 8.6 mg PO BID PRN PRN 11/26/16 11/26/16 Unknown History Tizanidine HCl [Zanaflex] 4 mg PO BID 11/26/16 11/26/16 11/25/16 History Umeclidinium [place] [Incruse 1 puff IH DAILY 11/26/16 11/26/16 11/15/16 History Ellipta] - History of Present Illness -Gen Adult Nature of Presenting Problems: 63 y/o female presents to ED with SOB. Pt reports hx COPD and asthma. Pt admits to smoking at least 2 ppd. 72% O2 sat in room on 3L. Pt is alert and oriented. Location of Pain/Injury: reports: none Pain Radiation: reports: no radiation Quality of Pain: reports: none Severity: reports: mild Onset/Duration: reports: unsure Timing: reports: still present Context/Activities at Onset: reports: none Modifying Factors: improves with: nothing Associated Symptoms: reports: shortness of breath Similar Symptoms Previously?: Yes (hx COPD/asthma) Recently seen or treated by another doctor?: No Review of Systems - Adult - REVIEW OF SYSTEMS - ADULT Constitutional: denies: chills, fever Eyes: reports: no symptoms reported Ears, Nose, Mouth & Throat: reports: no symptoms reported Cardiovascular: denies: chest pain, palpitations Respiratory: reports: shortness of breath. denies: cough Gastrointestinal: denies: abdominal pain, diarrhea, nausea, vomiting Genitourinary: reports: no symptoms reported Musculoskeletal: denies: back pain, joint pain Integumentary: reports: no symptoms reported Neurological: denies: dizziness/vertigo, seizure Psychiatric: reports: no symptoms reported Endocrine: reports: no symptoms reported Hematologic/Lymphatic: reports: no symptoms reported Allergic/Immunologic: reports: no symptoms reported All Other Systems: Reviewed and Negative Past History - Adult - PAST MEDICAL HISTORY-ADULT Review of Records: reports: Old Records Reviewed, Nursing Assessment Review, Medications Reviewed Major Childhood Illnesses: reports: denies history Cardiovascular: reports: HTN, hyperlipidemia Respiratory: reports: asthma, COPD Gastrointestinal: reports: denies history Obstetrical/Gynecological: reports: denies history, other (breast cancer) Genitourinary: reports: denies history Musculoskeletal: reports: denies history Neurological: reports: denies history, Multiple Sclerosis Endocrine/Immune: reports: Diabetes Other Conditions: reports: other cancer - PRIOR SURGERIES/PROCEDURES Surgical/Procedure History: reports: cholecystectomy, hysterectomy, , breast (mastectomy), gastric bypass, other - PRIOR HOSPITALIZATIONS Prior Hospitalizations: reports: none - IMMUNIZATION STATUS Childhood Immunizations: See Nurse Assessment Flu Vaccine: See Nurse Assessment - FAMILY HISTORY Family History: reviewed, not pertinent - SOCIAL HISTORY Smoking: greater than 1 pack/day Provider spent 3-5 mins advising pt. on dangers of tobacco.: Discussed manners to quit use, and f/u contacts for add'l counseling. Substance Use: none/never Alcohol Use Frequency: never Living Situation: family Physical Exam-General - PHYSICAL EXAM-ADULT Initial Vital Signs Reviewed: Yes - CONSTITUTIONAL General Appearance: appears well, alert, no apparent distress, other (cushnoid) - EYES Eyes: PERRL/EOMI, pink conjunctivae, other (2 mm reactive pupils) - HEAD, EARS, NOSE, MOUTH & THROAT HENMT: normocephalic/atraumatic, moist mucous membranes, normal ENT inspection - NECK Neck: non-tender, full range of motion - RESPIRATORY Respiratory: chest non-tender, wheezing - CARDIOVASCULAR Cardiovascular: normal peripheral pulses, regular rate, rhythm, other (distant heart tones) - GASTROINTESTINAL (ABDOMEN) Abdominal Exam: normal bowel sounds, non tender, soft, other (dilated abdominal veins) - MUSCULOSKELETAL Back Exam: normal inspection, no CVA tenderness Extremity: normal range of motion, non-tender, normal gait - SKIN Integumentary: normal color, warm/dry - NEUROLOGIC Neurologic: grossly normal, other (minimally slurred speech) - PSYCHIATRIC Psych/Mental Status: normal mood/affect, normal thought content, normal thought process Progress - PLAN OF CARE/RESULTS Progress/Plan/Lab Results: Vital Signs - 8 hr 03/01/18 11:36 Temperature 99.3 F Pulse Rate 101 H Respiratory Rate 25 H Blood Pressure 169/78 O2 Sat by Pulse Oximetry 72 L Orders Category Date Time Status CHEST-PORTABLE [RAD] Stat Exams 03/01/18 11:45 Ordered ABG [RESP] Routine Lab 03/01/18 11:35 Ordered CBC WITH ELECTRONIC DIFF [HEME] Stat Lab 03/01/18 11:46 Uncollected COMPREHENSIVE METABOLIC PANEL [CHEM] Stat Lab 03/01/18 11:46 Uncollected UA NIMS W/REFLEX CULT [URINALYSIS] Stat Lab 03/01/18 11:46 Ordered URINE DRUG SCREEN Stat Lab 03/01/18 11:47 Uncollected Albuterol 2.5MG/Ipratrop 0.5MG [Duoneb (A & A)] Med 03/01/18 11:43 Discontinued 9 ml INH NOW ONE Methylprednisolone Sod Succ [Solu-Medrol] Med 03/01/18 11:44 Discontinued 125 mg IV NOW ONE Aerosol Treatments Routine Oth 03/01/18 11:43 Active Aerosol Treatments Stat Oth 03/01/18 11:43 Active Laboratory Tests 03/01/18 11:55 Specimen Type ARTERIAL Sample Site R RADIAL pH 7.28 L pCO2 61 H* pO2 57 L HCO3 25.6 Base Excess 1.2 Oxyhemoglobin 80.8 L* ABG O2 Sat (Calculated) 10.8 L ABG O2 Saturation 87.4 L ABG Carboxyhemoglobin 6.90 H* ABG Methemoglobin 0.6 Jamie Test YES A-a O2 Difference 223.0 Total Hemoglobin 9.5 L Lactate 0.90 Liter Flow 15.0 Blood Gas Modality VENTIMASK FiO2 % 50.0 Result Diagrams: 03/01/18 12:10 - REASSESSMENT Reassessment #1 Time Reassessed: 12:50 Status: unchanged (She is just a little lethargic, continues to wheeze and with increased WOB. ABG noted including CO2 retension. Carboxyhemoglobin is 6.9 reflecting 2 ppd smoking.) - XRAY 1 XRAY Study: Chest Impression: Abnormal (COMMENT: The left pleural effusion present on 11/30/2016 is no longer present. There is increased interstitial markings generally. This was not the case on the previous study. IMPRESSION: Pulmonary edema plus minus pneumonia. Electronically signed by Kasi Collins 03/01/2018 12:10 PM) - CONSULTS/PCP/HOSPITALIST Notification #1 *Consult/PCP/Hospitalist*: Dr nava Time Discussed: 12:54 Consult Disposition: Will see in ED, Admit Departure - Departure Date of Disposition Decision: 03/01/18 Time of Disposition Decision: 12:56 DIAGNOSIS: Tobacco abuse disorder, Respiratory failure, COPD (chronic obstructive pulmonary disease) Disposition: ADMITTED INPATIENT 09 Certified Medical Emergency: Emergent Condition: Poor Referrals and Follow-Ups: Yennifer José MD [Primary Care Provider] - - Critical Care Note This patient required my direct & personal management of CC.: Yes Total Time (mins): 45 Critical Care Statement: This patient required my direct personal management to treat or rule out processes, the absence of which, could potentiallly result in sudden, clinically significant life or limb threatening deterioration. Attestation - Physician/ DINO Attestation Patient care was provided by Advanced Practice Provider:: No The physician spent face to face time with patient:: Yes Advanced Practice Provider documentation review:: Supervising physician onsite and consulted in the evaluation and care of this patient. The physician did have a face to face encounter with the patient. This chart was documented by the indicated scribe, (Kathy Mireles, Jerica) and accurately reflects the services I performed and decisions made by me, Garrison Asif MD, as attested by the provider's signature.
[2018-03-01] MEDS ORDERED: ROCEPHIN 1 GM in NS 50 ML IV ONE (12:59)
[2018-03-01] MEDS ORDERED: ZITHROMAX 500 MG/NS 500 MG/250 ML IVPB IV ONE (13:00)
[2018-03-01 13:24] LABS: ALB/GLOB RATIO 0.8; ALBUMIN 3.6 g/dL (3.5-5.0); CALCIUM 8.8 mg/dL (8.8-10.2); POTASSIUM 5.1 mmol/L (3.5-5.1); TOTAL BILIRUBIN 0.22 mg/dL (0.20-1.00); TOTAL PROTEIN 8.2 g/dL (6.3-8.3)
[2018-03-01] MEDS ORDERED: LASIX IV ONE (13:38)
[2018-03-01 13:40] LABS: URINE SOURCE CLEAN CATCH
[2018-03-01 13:52] LABS: BILIRUBIN URINE NEGATIVE (NEGATIVE); BLOOD URINE NEGATIVE (NEGATIVE); COLOR YELLOW; GLUCOSE URINE NEGATIVE (NEGATIVE); KETONE URINE NEGATIVE (NEGATIVE); LEUKOCYTES URINE NEGATIVE (NEGATIVE); NITRITE URINE NEGATIVE (NEGATIVE); PROTEIN URINE 100 mg/dL (NEGATIVE); SP GRAVITY URINE 1.007; TURBIDITY URINE CLEAR (CLEAR); UROBILINOGEN URINE NORMAL (NORMAL)
[2018-03-01 13:54] LABS: UR EPITHELIAL CELLS <10 /HPF (<10); URINE BACTERIA NEGATIVE /HPF; URINE RBC <10 /HPF (<10); URINE WBC <10 /HPF (<10)
[2018-03-01 14:12] LABS: UR AMPHETAMINES QUAL NONE DETECTED (NONE DETECT); UR BARBITUATES QUAL NONE DETECTED (NONE DETECT); UR BENZODIAZEPIN QUAL NONE DETECTED (NONE DETECT); UR CANNABINOIDS QUAL NONE DETECTED (NONE DETECT); UR COCAINE QUAL NONE DETECTED (NONE DETECT); UR METHADONE QUAL NONE DETECTED (NONE DETECT); UR OPIATES QUAL NONE DETECTED (NONE DETECT); UR OXYCODONE QUAL NONE DETECTED (NONE DETECT); UR PCP QUAL NONE DETECTED (NONE DETECT)
[2018-03-01 15:30] LABS: BLOOD TYPE ARTERIAL; SAMPLE BLOOD
[2018-03-01 15:31] LABS: HCO3-(ACT) 29.1 mmoll (20.0-26.0); PO2(98.6) 139 mmHg (60-100); pH(98.6) 7.32 (7.35-7.45)
[2018-03-01 15:32] LABS: ALLEN TEST YES; MODALITY BI PAP
[2018-03-01 15:35] LABS: PCO2(98.6) 57 mmHg (35-45)
[2018-03-01] MEDS: DUONEB (A & A) INH SCH ×3 (16:00→23:30)
[2018-03-01] MEDS ORDERED: COLACE PO PRN (18:56)
[2018-03-01] MEDS ORDERED: ZOFRAN PO PRN (18:56)
[2018-03-01] MEDS ORDERED: SENOKOT PO PRN (18:56)
[2018-03-01] MEDS ORDERED: VENTOLIN HFA INH PRN (18:56)
--- NOTE | 2018-03-01 19:32 | HISTORY AND PHYSICAL ---
Ms Pemberton is a 63-year-old white female, a known case of COPD, was brought to the emergency room with severe shortness of breath. Ms. Pemberton has been having COPD for a while. She is a chronic heavy smoker at present. She has been smoking 2 packs or little over 2 packs per day. She has history of mild hypertension, maturity onset diabetes, severe depression. She has been on multiple medications . PAST SURGICAL HISTORY: She tells me that she has had a cholecystectomy, hysterectomy and possibly appendicectomy also. She did not have any joint surgeries. MEDICATIONS: Include mirtazapine, Loxitane, buspirone, clonidine and Breo Ellipta, gabapentin, labetalol, metformin and sitagliptin. REVIEW OF SYSTEMS: Other than shortness of breath, productive cough with greenish sputum noncontributory. PHYSICAL EXAMINATION: VITAL SIGNS: Reveal temperature normal, pulse 106 per minute, respiratory rate 29 per minute, blood pressure was 163/81. HEENT: Head normocephalic. Pupils PERRLA. Fundus examination not done. NECK: Supple. JVP normal. ENT: Unremarkable. Patient is on BiPAP at the present time. There is no evidence of lymphadenopathy, thyroid enlargement, pedal edema, calf tenderness, anemia, cyanosis or clubbing. Pedal pulses feeble. Breast exam not done. Chest normal inspection. LUNGS: Reveal bilateral basal rales with some expiratory wheezing. PMI in the normal position. HEART: Sounds normal. No murmur, gallop or rub noted. ABDOMEN: Nondistended, hernial orifices normal. No guarding, rigidity, free fluid, masses, organomegaly. Bowel sounds normal. RECTAL: Deferred. TECHNOLOGIST DEVELOPMENT: Higher functions normal. Cranial nerves normal. Motor and sensory system examination unremarkable. Deep tendon reflexes normal. Plantars downgoing. Skull and spine examination normal for age. No cerebellar signs or signs of meningeal irritation. Locomotor, skin unremarkable. IMPRESSION: 1. Chronic obstructive pulmonary disease with acute exacerbation, possible pneumonia. 2. Severe anxiety. 3. History of maturity onset diabetes. We will continue the current management. Will put her up for proton pump inhibitors for GI protection and Lovenox for venous prophylaxis. cc: Carlos A Goldberg MD
[2018-03-01 20:18] LABS: ALLEN TEST YES; BE 5.7 mmoll (-3.0-3.0); BLOOD TYPE ARTERIAL; HCO3-(ACT) 29.4 mmoll (20.0-26.0); METHB 0.3 % (0.0-1.5); O2(CT) 12.6 mL/dL (15.0-23.0); O2HB 97.2 % (95.0-99.0); PCO2(98.6) 49 mmHg (35-45); PO2(98.6) 138 mmHg (60-100); SAMPLE BLOOD; SAO2 98.3 % (95.0-100.0); pH(98.6) 7.41 (7.35-7.45)
[2018-03-01 20:19] LABS: MODALITY BI PAP
[2018-03-02] MEDS: CATAPRES PO SCH ×3 (01:20→21:01)
[2018-03-02] MEDS: BUSPAR PO SCH ×3 (01:20→21:01)
[2018-03-02] MEDS: LOXITANE PO SCH ×2 (01:21→21:28)
[2018-03-02] MEDS: TRANDATE PO SCH ×3 (01:22→21:30)
[2018-03-02] MEDS: REMERON PO SCH ×2 (01:22→21:30)
[2018-03-02] MEDS: PROCARDIA ER PO SCH ×3 (01:22→21:29)
[2018-03-02] MEDS: ZANAFLEX PO SCH ×3 (01:23→21:30)
[2018-03-02] MEDS: ZOLOFT PO SCH ×2 (01:23→21:01)
[2018-03-02] MEDS: DUONEB (A & A) INH SCH ×6 (03:30→23:03)
[2018-03-02] MEDS: SOLU-MEDROL IV SCH ×4 (06:16→19:03)
[2018-03-02] MEDS: LOVENOX SUBQ SCH (06:51)
[2018-03-02] MEDS: PROTONIX IV SCH (06:51)
[2018-03-02] MEDS: BREO ELLIPTA 100/25 MCG INH INH SCH (07:09)
[2018-03-02] MEDS: INCRUSE ELLIPTA INH SCH (07:09)
[2018-03-02] MEDS ORDERED: NON-FORMULARY MED (Omeprazole [Omeprazole] 40 MG) PO SCH (09:00)
[2018-03-02] MEDS ORDERED: JANUVIA PO SCH (09:00)
[2018-03-02] MEDS: ASPIRIN EC PO SCH (11:01)
[2018-03-02] MEDS: GLUCOPHAGE PO SCH ×2 (11:01→18:17)
[2018-03-02] MEDS: HUMALOG SUBQ SCH ×4 (11:01→21:23)
[2018-03-02] MEDS: VICON-C PO SCH (11:01)
[2018-03-02] MEDS: NEURONTIN PO SCH ×3 (11:01→18:17)
[2018-03-02] MEDS: JANUVIA PO SCH (13:20)
[2018-03-02] MEDS ORDERED: LASIX IV ONE (14:04)
[2018-03-02] MEDS: ZITHROMAX 500 MG/NS 500 MG/250 ML IVPB IV SCH ×2 (18:15→21:22)
[2018-03-02] MEDS: ROCEPHIN 1 GM in NS 50 ML IV SCH ×2 (18:15→19:04)
[2018-03-02 18:54] LABS: BASO# 0.01 X1000 (0.0-0.2); BASO% 0.1 % (0.0-0.8); HEMATOCRIT 29.1 % (37.0-47.0); HEMOGLOBIN 8.2 g/dL (12.0-16.0); IMM GRAN# 0.05 X1000 (0.0-0.04); IMM GRAN% 0.5 % (0.0-0.5); LYMPH# 0.87 X1000 (1.2-3.4); LYMPH% 9.2 % (20.5-51.1); MCH 22.9 PG (27-31); MCHC 28.2 g/dL (33-37); MCV 81.3 FL (81-99); MONO# 0.37 X1000 (0.11-0.59); MONO% 3.9 % (1.7-9.3); MPV 9.6 FL (7.4-10.4); NEUT# 8.17 X1000 (1.4-6.5); NEUT% 86.3 % (42.2-75.2); PLT 259 X1000 (130-400); RBC 3.58 XMIL (4.2-5.4); RDW 19.6 % (11.5-14.5); WBC 9.47 X1000 (4.8-10.8)
[2018-03-02 19:07] LABS: AGAP 11; ALB/GLOB RATIO 0.9; ALBUMIN 3.1 g/dL (3.5-5.0); ALKALINE PHOSPHATASE 108 U/L (32-104); BUN 17 mg/dL (8-22); CALCIUM 8.5 mg/dL (8.8-10.2); CHLORIDE 101 mmol/L (98-107); CK PROFILE 57 U/L (24-173); COSMO 285; CREATININE 0.8 mg/dL (0.5-0.9); ESTIMATED GFR > 60; GLUCOSE 106 mg/dL (70-104); GOT 44 U/L (10-30); GPT 31 U/L (10-36); MAGNESIUM 1.6 mg/dL (1.5-2.7); POTASSIUM 4.4 mmol/L (3.5-5.1); SODIUM 142 mmol/L (136-145); TCO2 30 mmol/L (25-35); TOTAL BILIRUBIN < 0.15 mg/dL (0.20-1.00); TOTAL PROTEIN 6.6 g/dL (6.3-8.3)
[2018-03-02 19:39] LABS: ANISOCYTOSIS 2+; BANDS 2 % (0-1); HYPOCHROM 2+; LYMPHS 7 % (21-51); MONO 4 % (1-9); NRBC 1 % (0-0); SEGS 85 % (42-75)
--- NOTE | 2018-03-02 19:51 | PULMONOLOGY CONSULTATION ---
DATE: 03/02/2018 REQUESTING PHYSICIAN: Dr. Miles Calix. REASON FOR CONSULTATION: Respiratory failure. HISTORY OF PRESENT ILLNESS: Ms. Pemberton is a 63-year-old white female with a greater than 80-pack- year history of tobacco, ongoing tobacco use with radiographic severe COPD seen on CT scan in 2013. She presented to the emergency room yesterday with increased cough, increased sputum production, and an oxygen saturation of 72%. The patient has home oxygen but is not compliant with her oxygen. An arterial blood gas revealed a pH of 7.28, pCO2 of 61, and a pO2 of 57, with a carboxyhemoglobin level of 6.9. Chest x-ray was performed, which revealed increased vascular congestion with an infiltrate at the right base. PAST MEDICAL HISTORY/PROBLEM LIST: 1. Severe COPD with ongoing tobacco use. 2. Chronic hypoxemic respiratory failure with noncompliance to oxygen therapy. 3. Hypertension. 4. Diabetes mellitus. 5. Anxiety/depressive disorder. 6. Status post cholecystectomy. 7. Status post hysterectomy. 8. History of breast cancer. FAMILY HISTORY: Positive for prostate cancer in the father, colon cancer in a sister, and strokes in her mother. REVIEW OF SYSTEMS: As noted in the HPI. PHYSICAL EXAMINATION: GENERAL: A frail, [id number]-[id number] white female who appears older than her stated age. VITAL SIGNS: Blood pressure 110/62, heart rate 67, respiration rate 17, oxygen saturation 93%. Maximum temperature during this hospitalization 99.3 degrees. HEENT: Pupils are equal and reactive. Oropharynx is clear. NECK: Supple. CHEST: Reveals coarse rhonchi and wheezing bilaterally. CARDIAC: S1 and S2. ABDOMEN: Soft. EXTREMITIES: Without edema. IMPRESSION: A 63-year-old with severe chronic obstructive pulmonary disease, ongoing tobacco use, chronic obstructive pulmonary disease exacerbation with a community-acquired pneumonia, and acute hypoxemic and acute hypercapnic respiratory failure. The patient does report some chest pressure but had a similar presentation in 2017, and the workup at that time was negative for cardiac ischemia. RECOMMENDATIONS: 1. Strongly encourage patient to discontinue tobacco use. 2. Continue to cycle BiPAP and O2 as necessary for her acute respiratory failure. 3. Continue bronchodilators, steroids, and antibiotics. cc: MD Carlos A Sparks MD
--- NOTE | 2018-03-02 20:45 | PROGRESS NOTE ---
DATE: 03/02/2018 Ms Pemberton 63-year-old white female patient, known case of her severe COPD noncompliant to treatment. Unfortunately patient is still smoking. Admitted with chest congestion, cough productive of sputum, increasing shortness of breath. The patient was sick for 2 to 3 days. Evaluated in the ER, found to be in respiratory failure. The patient does have history part is limited. The patient is restless at times.mood is variable. The patient was getting short of breath with minimal exertion. We did put Avalos catheter. PAST MEDICAL HISTORY: Severe COPD, chronic respiratory failure, hypertension, NIDDM, anxiety and depression, history of breast cancer. OBJECTIVE: Vital signs: Blood pressure 120/65, pulse 64, respiration 18, temperature 97.8 degrees. The patient is on BiPAP. Neck: Supple. No JVD. Lungs: Bibasilar crepitation. Heart: S1 and S2 heard. Abdomen: Soft, globular. Bowel sounds present. Extremities: No cyanosis, clubbing. Minimal swelling. No acute DVT. [employer] SALES AMBASSADOR: Alert, awake, able to move all 4 limbs. Patient's admission lab data noted. I repeated lab, hemoglobin was 8.2, hematocrit 29.1, WBC count 9.47, platelet count 259,000. Electrolytes fairly benign, potassium 4.4, BUN 17, creatinine 0.8. I did check cardiac isoenzymes those were normal. ProBNP was elevated. Chest x-ray results reviewed. CONSIDERATION: 1. Chronic obstructive pulmonary disease exacerbation with community-acquired pneumonia. 2. Acute hypoxemic and hypercarbic respiratory failure. 3. Non-insulin dependent diabetes mellitus. 4. Obesity. 5. History of hypertension. 6. Patient's hemoglobin was low. Patient is anemic. PLAN: Admit patient to ICU. We did pulmonary consult. Bronchodilator treatment. IV steroid, IV antibiotics. Close observation. Overall plan and prognosis discussed with her daughter. Encouraged smoking cessation. cc: MD Carlos A Jordan MD MTDD
[2018-03-03] MEDS: DUONEB (A & A) INH SCH ×6 (03:04→23:24)
[2018-03-03] MEDS: SOLU-MEDROL IV SCH ×3 (04:52→18:16)
[2018-03-03 05:00] LABS: ALLEN TEST YES; BE 6.9 mmoll (-3.0-3.0); BLOOD TYPE ARTERIAL; HCO3-(ACT) 30.4 mmoll (20.0-26.0); METHB 1.5 % (0.0-1.5); O2(CT) 4.5 mL/dL (15.0-23.0); O2HB 95.3 % (95.0-99.0); PO2(98.6) 71 mmHg (60-100); SAMPLE BLOOD; SAO2 99.1 % (95.0-100.0); THB 3.2 g/dL (11.5-17.4); pH(98.6) 7.35 (7.35-7.45)
[2018-03-03 05:01] LABS: MODALITY BI PAP; PCO2(98.6) 59 mmHg (35-45)
[2018-03-03 05:31] LABS: BASO# 0.01 X1000 (0.0-0.2); BASO% 0.1 % (0.0-0.8); HEMATOCRIT 31.1 % (37.0-47.0); HEMOGLOBIN 8.7 g/dL (12.0-16.0); IMM GRAN# 0.09 X1000 (0.0-0.04); LYMPH# 1.18 X1000 (1.2-3.4); LYMPH% 13.2 % (20.5-51.1); MCH 22.7 PG (27-31); MCV 81.2 FL (81-99); MONO% 4.5 % (1.7-9.3); MPV 10.6 FL (7.4-10.4); NEUT# 7.28 X1000 (1.4-6.5); NEUT% 81.2 % (42.2-75.2); PLT 286 X1000 (130-400); RBC 3.83 XMIL (4.2-5.4); RETIC% 1.93 % (0.8-2.1); WBC 8.96 X1000 (4.8-10.8)
[2018-03-03 05:44] LABS: IRON SATURATION 4 %; TIBC 277 ug/dL; TOTAL IRON 12 ug/dL (49-151); UNBOUND IRON 265 ug/dL (112-346)
[2018-03-03 05:46] LABS: MAGNESIUM 1.8 mg/dL (1.5-2.7); PHOSPHORUS 4.7 mg/dL (2.7-4.5)
[2018-03-03 05:52] LABS: HYPOCHROM 1+; LYMPHS 22 % (21-51); MONO 14 % (1-9); SEGS 64 % (42-75)
[2018-03-03 05:56] LABS: AGAP 16; ALB/GLOB RATIO 0.8; ALBUMIN 3.1 g/dL (3.5-5.0); ALKALINE PHOSPHATASE 121 U/L (32-104); BUN 24 mg/dL (8-22); CALCIUM 8.4 mg/dL (8.8-10.2); CHLORIDE 102 mmol/L (98-107); COSMO 296; ESTIMATED GFR 56; GLUCOSE 154 mg/dL (70-104); GOT 57 U/L (10-30); GPT 37 U/L (10-36); POTASSIUM 4.6 mmol/L (3.5-5.1); SODIUM 145 mmol/L (136-145); TCO2 27 mmol/L (25-35); TOTAL BILIRUBIN < 0.15 mg/dL (0.20-1.00); TOTAL PROTEIN 7.1 g/dL (6.3-8.3)
[2018-03-03 06:09] LABS: TSH 0.88 uIUmL (0.27-4.20)
[2018-03-03] MEDS: LOVENOX SUBQ SCH (06:25)
[2018-03-03] MEDS: PROTONIX IV SCH (06:25)
[2018-03-03] MEDS: HUMALOG SUBQ SCH ×4 (06:26→20:08)
--- NOTE | 2018-03-03 07:13 | Diag Imaging Result Doc PS360 ---
EXAM: CHEST-PORTABLE 03/03/2018 HISTORY: respiratory failure TECHNIQUE: AP portable at 0531 COMMENT: There is blunting of the left costophrenic angle which was not the case on 03/01/2018. There has been improvement in the pulmonary edema which was present at the time the previous study. IMPRESSION: Worsened left pleural effusion, improved pulmonary edema. Electronically signed by Kasi Collins 03/03/2018 7:11 AM
[2018-03-03] MEDS: INCRUSE ELLIPTA INH SCH (08:03)
[2018-03-03] MEDS: BREO ELLIPTA 100/25 MCG INH INH SCH (08:03)
[2018-03-03] MEDS: VICON-C PO SCH (09:02)
[2018-03-03] MEDS: JANUVIA PO SCH (09:02)
[2018-03-03] MEDS: GLUCOPHAGE PO SCH ×2 (09:02→17:17)
[2018-03-03] MEDS: NEURONTIN PO SCH ×3 (09:03→17:17)
[2018-03-03] MEDS: ZANAFLEX PO SCH ×2 (09:03→20:10)
[2018-03-03] MEDS: BUSPAR PO SCH ×2 (09:03→20:08)
[2018-03-03] MEDS: CATAPRES PO SCH ×2 (09:03→20:08)
[2018-03-03] MEDS: PROCARDIA ER PO SCH ×2 (09:03→20:11)
[2018-03-03] MEDS: ASPIRIN EC PO SCH (09:03)
[2018-03-03] MEDS: TRANDATE PO SCH ×2 (09:04→20:11)
[2018-03-03] MEDS: ZITHROMAX 500 MG/NS 500 MG/250 ML IVPB IV SCH (18:12)
[2018-03-03] MEDS: ROCEPHIN 1 GM in NS 50 ML IV SCH (18:17)
[2018-03-03] MEDS: ZOLOFT PO SCH (20:09)
[2018-03-03] MEDS: LOXITANE PO SCH (20:11)
[2018-03-03] MEDS: REMERON PO SCH (20:12)
[2018-03-03] MEDS ORDERED: LASIX IV ONE (22:21)
--- NOTE | 2018-03-04 01:21 | PROGRESS NOTE ---
DATE: 03/03/2018 SUBJECTIVE: The patient is a 63-year-old white female admitted to the hospital on 03/01/2018 for acute COPD exacerbation due to underlying COPD and ongoing tobacco abuse. The patient is in ICU on BiPAP. I appreciated Dr. Mckinley's consult. PAST MEDICAL HISTORY: Reviewed. PAST SURGICAL HISTORY: Reviewed. MEDICATIONS: Reviewed. ALLERGIES: Toradol. REVIEW OF SYSTEMS: Not able to obtain, the patient is on BiPAP. Apparently she is still actively smoking. PHYSICAL EXAMINATION: Vital Signs: Hemodynamics were stable. 92% on BiPAP machine. FiO2 of 70%. Chest: Poor air entry. Heart: Distant heart sounds. Abdomen: Belly is soft, nontender. She is in position. Extremities: No peripheral edema. Suboptimal exam. LABORATORY DATA: CBC: White cell count 8.9, hematocrit 31, platelets 286,000. ABG: pH is 7.35, pCO2 is 59, PO2 is 71 on BiPAP 70. SMA 7: Sodium 145, potassium 4.6, chloride 102, BUN 24, creatinine 1.0, glucose 154, and calcium 8.4. LFTs were high. Cardiac enzymes are negative. ProBNP 9000. B12 is normal. Folate is 40. Urinalysis is negative. Urine toxicology is negative. Blood cultures are negative. Chest x-ray with slight edema on the left lung. ASSESSMENT AND PLAN: 1. Acute respiratory failure due to chronic obstructive pulmonary disease with decompensated diastolic heart failure and Dr. Mckinley given V Lasix 1. Continue BiPAP and wean off FiO2. 2. Acute chronic obstructive pulmonary disease currently on Zithromax, ceftriaxone, intravenous steroids. 3. Deep venous thrombosis prophylaxis with Lovenox. 4. Gastrointestinal prophylaxis with intravenous Protonix. 5. Reconcile home medications. 6. Type 2 diabetes. Follow up on sliding scale with insulin coverage. 7. Ongoing tobacco abuse. Quit smoking. 8. We will follow up. cc: MD Carlos A Cline MD MTDD
[2018-03-04] MEDS: SOLU-MEDROL IV SCH ×3 (02:32→18:20)
[2018-03-04] MEDS: DUONEB (A & A) INH SCH ×6 (03:15→23:32)
[2018-03-04 05:38] LABS: ALLEN TEST YES; BE 5.9 mmoll (-3.0-3.0); BLOOD TYPE ARTERIAL; HCO3-(ACT) 29.5 mmoll (20.0-26.0); METHB 0.5 % (0.0-1.5); O2(CT) 11.1 mL/dL (15.0-23.0); O2HB 93.1 % (95.0-99.0); PO2(98.6) 69 mmHg (60-100); SAMPLE BLOOD; SAO2 94.5 % (95.0-100.0); THB 8.4 g/dL (11.5-17.4); pH(98.6) 7.38 (7.35-7.45)
[2018-03-04 05:39] LABS: MODALITY BI PAP; PCO2(98.6) 54 mmHg (35-45)
[2018-03-04 05:43] LABS: BASO# 0.01 X1000 (0.0-0.2); BASO% 0.1 % (0.0-0.8); HEMATOCRIT 30.5 % (37.0-47.0); HEMOGLOBIN 8.8 g/dL (12.0-16.0); IMM GRAN# 0.06 X1000 (0.0-0.04); IMM GRAN% 0.6 % (0.0-0.5); LYMPH# 0.96 X1000 (1.2-3.4); LYMPH% 9.6 % (20.5-51.1); MCHC 28.9 g/dL (33-37); MCV 79.8 FL (81-99); MPV 10.5 FL (7.4-10.4); NEUT# 8.62 X1000 (1.4-6.5); NEUT% 86.7 % (42.2-75.2); PLT 270 X1000 (130-400); RBC 3.82 XMIL (4.2-5.4); RDW 19.6 % (11.5-14.5); WBC 9.95 X1000 (4.8-10.8)
[2018-03-04 06:05] LABS: AGAP 16; ALB/GLOB RATIO 0.7; ALKALINE PHOSPHATASE 110 U/L (32-104); BUN 29 mg/dL (8-22); CALCIUM 9.1 mg/dL (8.8-10.2); CHLORIDE 95 mmol/L (98-107); COSMO 286; ESTIMATED GFR 56; GLUCOSE 137 mg/dL (70-104); GOT 37 U/L (10-30); GPT 35 U/L (10-36); POTASSIUM 4.6 mmol/L (3.5-5.1); SODIUM 139 mmol/L (136-145); TCO2 28 mmol/L (25-35); TOTAL BILIRUBIN < 0.15 mg/dL (0.20-1.00); TOTAL PROTEIN 7.3 g/dL (6.3-8.3)
[2018-03-04] MEDS: HUMALOG SUBQ SCH ×4 (06:20→21:45)
[2018-03-04] MEDS: PROTONIX IV SCH (06:21)
[2018-03-04] MEDS: LOVENOX SUBQ SCH (06:21)
[2018-03-04 06:29] LABS: LYMPHS 7 % (21-51); MONO 2 % (1-9); SEGS 91 % (42-75)
--- NOTE | 2018-03-04 06:49 | Diag Imaging Result Doc PS360 ---
EXAM: CHEST-PORTABLE HISTORY: respiratory failure TECHNIQUE: Portable chest single view COMPARISON: 03/03/2018 FINDINGS: The lungs are well expanded. The heart is borderline mildly prominent. There is mild pulmonary edema. There appear to be small pleural effusions as well as basilar atelectasis. IMPRESSION: No significant interval change. Electronically signed by Sami Figueroa 03/04/2018 6:46 AM
--- NOTE | 2018-03-04 06:55 | PULMONOLOGY PROGRESS NOTE ---
DATE: 03/03/2018 SUBJECTIVE: The patient is awake and alert. She is currently on a nonrebreather mask. She does not have increased work of breathing. She reports her shortness of breath has diminished. OBJECTIVE: Vital Signs: Blood pressure 100/60, heart rate 68, respiratory rate 27, oxygen saturation 95%, maximum temperature in the last 24 hours 99.4 degrees. HEENT: Pupils are equal and reactive. Oropharynx is clear. Neck: Supple. Chest: Reveals prolonged expiratory phase with scattered wheezing. Cardiac: S1 and S2. Abdomen: Soft and without hepatosplenomegaly. Extremities: Reveal trace edema. LABORATORY DATA: Chest x-ray reveals small amount of blunting at the left angle but decreased pulmonary edema. Sodium 145, potassium 4.6, chloride 102, bicarbonate 27, BUN 24, creatinine 1.0. Arterial blood gas: pH 7.35, pCO2 59, pO2 71 on BiPAP. Cultures: No new culture data. IMPRESSION: A 63-year-old with severe chronic obstructive pulmonary disease, ongoing tobacco use, chronic obstructive pulmonary disease exacerbation with community-acquired pneumonia, and acute hypoxemic, hypercapnic respiratory failure. She has a small effusion on the left which is new. RECOMMENDATIONS: 1. Continue to cycle BiPAP and O2 for acute hypoxemic and hypercapnic respiratory failure. 2. Strongly encourage the patient to stop smoking. 3. Continue steroids, bronchodilators, and antibiotics. 4. Attempt to balance input and output, and prevent fluid overload. cc: MD Carlos A Sparks MD
[2018-03-04] MEDS: BREO ELLIPTA 100/25 MCG INH INH SCH (07:32)
[2018-03-04] MEDS: INCRUSE ELLIPTA INH SCH (07:32)
[2018-03-04] MEDS: ASPIRIN EC PO SCH (08:41)
[2018-03-04] MEDS: NEURONTIN PO SCH ×3 (08:41→17:22)
[2018-03-04] MEDS: GLUCOPHAGE PO SCH ×2 (08:41→17:22)
[2018-03-04] MEDS: JANUVIA PO SCH (08:57)
[2018-03-04] MEDS: VICON-C PO SCH (08:57)
[2018-03-04] MEDS: CATAPRES PO SCH ×2 (08:57→20:33)
[2018-03-04] MEDS: TRANDATE PO SCH ×2 (08:57→20:33)
[2018-03-04] MEDS: ZANAFLEX PO SCH ×2 (08:57→20:33)
[2018-03-04] MEDS: BUSPAR PO SCH ×2 (08:57→20:33)
[2018-03-04] MEDS: PROCARDIA ER PO SCH ×2 (08:59→20:33)
[2018-03-04] MEDS: NICODERM PATCH TD SCH (13:26)
[2018-03-04] MEDS ORDERED: LASIX IV ONE (18:00)
[2018-03-04] MEDS: ROCEPHIN 1 GM in NS 50 ML IV SCH (18:20)
[2018-03-04] MEDS: ZITHROMAX 500 MG/NS 500 MG/250 ML IVPB IV SCH (18:20)
[2018-03-04] MEDS: ZOLOFT PO SCH (20:33)
[2018-03-04] MEDS: LOXITANE PO SCH (20:33)
[2018-03-04] MEDS: REMERON PO SCH (20:33)
[2018-03-05] MEDS: DUONEB (A & A) INH SCH ×6 (03:22→22:57)
[2018-03-05] MEDS: SOLU-MEDROL IV SCH ×3 (03:30→18:16)
--- NOTE | 2018-03-05 03:48 | PROGRESS NOTE ---
DATE: 03/04/2018 SUBJECTIVE: The patient is slowly weaning off FiO2. She is on a non-rebreather. Wants to eat. More docile. I's and O's negative. EXAMINATION: Vital Signs: Stable. HEENT: Within normal limits. Neck: Supple. Chest: Bilateral air entry. Heart: Sounds very distant. Abdomen: Belly is soft, nontender. Extremities: Decreased edema. LABS: CBC: White cell count 9.9, hematocrit 30, platelets 270,000. ABG: pH is 7.38, pCO2 54, PO2 69, on BiPAP. SMA-7 is normal. Chest x-ray: No significant interval change. Bibasilar atelectasis. ASSESSMENT AND PLAN: Acute respiratory failure due to chronic obstructive pulmonary disease and mild congestive heart failure. We will repeat the labs in the morning, slowly wean off. We will continue present medical therapy. IV ceftriaxone, IV Zithromax, and bronchodilators. Lasix was given, with good results. DVT and GI prophylaxis. As per the daughter, she will check the labs in the morning. LEVEL OF DOCUMENTATION: 25 minutes. cc: MD Carlos A Cline MD
--- NOTE | 2018-03-05 04:21 | PULMONOLOGY PROGRESS NOTE ---
DATE: 03/04/2018 SUBJECTIVE: The patient is awake, alert and conversant. She is currently on a non-rebreather mask. She has no increased work of breathing. She has had periods of confusion. OBJECTIVE: Vital Signs: Blood pressure 131/71, heart rate 73, respiratory rate 22, oxygen saturation 97% on non-rebreather. HEENT: Pupils are equal and reactive. Oropharynx is clear. Neck: Supple. Chest: Reveals prolonged expiratory phase with diffuse wheezing. Cardiac exam: S1, S2. Abdomen: Soft without hepatosplenomegaly. Extremities: Reveal trace edema. DIAGNOSTIC STUDIES: Chest x-ray reveals generous cardiac silhouette with mild pulmonary edema and small pleural effusions with bibasilar atelectasis. LABORATORY DATA: Arterial blood gas reveals a pH of 7.38, pCO2 of 54, PO2 of 69. White blood count 9.95, hemoglobin 8.8, platelet count 270,000. Chemistry: Sodium 139, potassium 4.6, chloride 95, bicarbonate 28, BUN 29, creatinine 1.0. IMPRESSION: A 63-year-old with severe chronic obstructive pulmonary disease, chronic obstructive pulmonary disease exacerbation, ongoing tobacco use, community-acquired pneumonia, with acute hypoxemic and hypercapnic respiratory failure. She has small effusions. Clinically, she is improving. RECOMMENDATIONS: 1. Continue to cycle BiPAP and O2 for hypoxemic and hypercapnic respiratory failure. 2. Continue antibiotics, steroids, and bronchodilators for COPD and pneumonia. 3. Encouraged smoking cessation. 4. Continue to balance intake and output to prevent fluid overload. cc: MD Carlos A Sparks MD
[2018-03-05 04:42] LABS: BLOOD TYPE ARTERIAL; HCO3-(ACT) 34.2 mmoll (20.0-26.0); O2(CT) 9.4 mL/dL (15.0-23.0); O2HB 90.1 % (95.0-99.0); PO2(98.6) 57 mmHg (60-100); SAMPLE BLOOD; THB 7.4 g/dL (11.5-17.4); pH(98.6) 7.41 (7.35-7.45)
[2018-03-05 04:43] LABS: MODALITY BI PAP; PCO2(98.6) 60 mmHg (35-45)
[2018-03-05 05:01] LABS: BASO# 0.01 X1000 (0.0-0.2); BASO% 0.1 % (0.0-0.8); EOS# 0.01 X1000 (0.0-0.7); EOS% 0.1 % (0.0-10.0); HEMATOCRIT 29.6 % (37.0-47.0); HEMOGLOBIN 8.5 g/dL (12.0-16.0); IMM GRAN# 0.07 X1000 (0.0-0.04); IMM GRAN% 0.7 % (0.0-0.5); LYMPH# 2.28 X1000 (1.2-3.4); MCH 22.4 PG (27-31); MCHC 28.7 g/dL (33-37); MCV 78.1 FL (81-99); MONO# 0.74 X1000 (0.11-0.59); MONO% 7.5 % (1.7-9.3); MPV 10.2 FL (7.4-10.4); NEUT# 6.81 X1000 (1.4-6.5); NEUT% 68.6 % (42.2-75.2); PLT 334 X1000 (130-400); RBC 3.79 XMIL (4.2-5.4); RDW 19.6 % (11.5-14.5); WBC 9.92 X1000 (4.8-10.8)
[2018-03-05] MEDS: TYLENOL PO PRN (05:12)
[2018-03-05 05:19] LABS: AGAP 13; ALBUMIN 2.9 g/dL (3.5-5.0); ALKALINE PHOSPHATASE 99 U/L (32-104); BUN 33 mg/dL (8-22); CALCIUM 9.3 mg/dL (8.8-10.2); CHLORIDE 93 mmol/L (98-107); COSMO 282; ESTIMATED GFR 56; GLUCOSE 85 mg/dL (70-104); GOT 39 U/L (10-30); GPT 33 U/L (10-36); POTASSIUM 3.5 mmol/L (3.5-5.1); SODIUM 138 mmol/L (136-145); TCO2 32 mmol/L (25-35); TOTAL BILIRUBIN < 0.15 mg/dL (0.20-1.00); TOTAL PROTEIN 6.6 g/dL (6.3-8.3)
[2018-03-05 05:41] LABS: MAGNESIUM 1.3 mg/dL (1.5-2.7); PHOSPHORUS 4.3 mg/dL (2.7-4.5)
[2018-03-05 06:25] LABS: ALLEN TEST YES
--- NOTE | 2018-03-05 06:47 | Diag Imaging Result Doc PS360 ---
EXAM: CHEST-PORTABLE HISTORY: respiratory failure TECHNIQUE: Portable chest single view COMPARISON: 03/04/2012 FINDINGS: The lungs remain well expanded. The heart is mildly prominent and there is mild vascular distention. No consolidation. Questionable trace left pleural fluid. IMPRESSION: Persistent cardiomegaly with pulmonary edema. Electronically signed by Sami Figueroa 03/05/2018 6:45 AM
[2018-03-05] MEDS: BREO ELLIPTA 100/25 MCG INH INH SCH (07:03)
[2018-03-05] MEDS: INCRUSE ELLIPTA INH SCH (07:04)
[2018-03-05] MEDS: PROTONIX IV SCH (07:27)
[2018-03-05] MEDS: HUMALOG SUBQ SCH ×4 (07:28→20:44)
[2018-03-05] MEDS: LOVENOX SUBQ SCH (07:28)
[2018-03-05] MEDS: TRANDATE PO SCH ×2 (08:36→20:31)
[2018-03-05] MEDS: ASPIRIN EC PO SCH (08:36)
[2018-03-05] MEDS: GLUCOPHAGE PO SCH ×2 (08:36→17:42)
[2018-03-05] MEDS: BUSPAR PO SCH ×2 (08:36→20:31)
[2018-03-05] MEDS: PROCARDIA ER PO SCH ×2 (08:36→20:31)
[2018-03-05] MEDS: JANUVIA PO SCH (09:16)
[2018-03-05] MEDS: VICON-C PO SCH (09:16)
[2018-03-05] MEDS: CATAPRES PO SCH ×2 (09:16→20:27)
[2018-03-05] MEDS: ZANAFLEX PO SCH ×2 (09:16→20:31)
[2018-03-05] MEDS: NICODERM PATCH TD SCH (09:17)
[2018-03-05] MEDS: NEURONTIN PO SCH ×3 (09:17→17:42)
[2018-03-05] MEDS ORDERED: LASIX IV ONE (10:06)
[2018-03-05] MEDS: ZITHROMAX 500 MG/NS 500 MG/250 ML IVPB IV SCH (18:16)
[2018-03-05] MEDS: ROCEPHIN 1 GM in NS 50 ML IV SCH (18:16)
[2018-03-05] MEDS: ZOLOFT PO SCH (20:31)
[2018-03-05] MEDS: LOXITANE PO SCH (20:31)
[2018-03-05] MEDS: REMERON PO SCH (20:31)
--- NOTE | 2018-03-05 23:40 | PROGRESS NOTE ---
DATE: 03/05/2018 SUBJECT: Patient is off BiPAP on 50% Ventimask a little better, not pulling the mask. Temperature is 97 degrees, vitals are stable, 93%. I's and O's -6 on 20 mL. HEENT: Exam within normal limits. Chest: Clear. Had IJ placed the central line on the right side. Decreased air entry. Heart sounds are regular. Belly soft, nontender. No edema noted. DATA: Chest x-ray, persistent cardiomegaly. ASSESSMENT AND PLAN: 1. Acute respiratory failure of BiPAP combination of chronic obstructive pulmonary disease and diastolic heart failure. Continue the treatment as per Dr. Mckinley. 2. History of breast cancer on the left side stable. 3. Deep vein thrombosis, gastrointestinal prophylaxis as per order sheet. 4. Chronic anxiety, depression on loxapine, Remeron, Zoloft, BuSpar. Hypertension is stable current regimen and slowly weaned off oxygen as tolerated . LEVEL OF DOCUMENTATION: 25 minutes. cc: MD Carlos A Cline MD
[2018-03-06] MEDS: DUONEB (A & A) INH SCH ×6 (03:09→23:35)
[2018-03-06] MEDS: SOLU-MEDROL IV SCH ×3 (04:02→22:08)
[2018-03-06 05:13] LABS: ALLEN TEST YES; BE 14.2 mmoll (-3.0-3.0); BLOOD TYPE ARTERIAL; HCO3-(ACT) 35.9 mmoll (20.0-26.0); METHB 0.5 % (0.0-1.5); O2(CT) 11.7 mL/dL (15.0-23.0); PO2(98.6) 57 mmHg (60-100); SAMPLE BLOOD; SAO2 91.4 % (95.0-100.0); THB 9.2 g/dL (11.5-17.4); pH(98.6) 7.46 (7.35-7.45)
[2018-03-06 05:15] LABS: MODALITY BI PAP
[2018-03-06 06:12] LABS: AGAP 12; ALB/GLOB RATIO 0.9; BUN 28 mg/dL (8-22); CALCIUM 8.9 mg/dL (8.8-10.2); CHLORIDE 93 mmol/L (98-107); COSMO 286; CREATININE 0.8 mg/dL (0.5-0.9); ESTIMATED GFR > 60; GLUCOSE 122 mg/dL (70-104); GOT 31 U/L (10-30); GPT 34 U/L (10-36); POTASSIUM 3.6 mmol/L (3.5-5.1); SODIUM 140 mmol/L (136-145); TCO2 35 mmol/L (25-35); TOTAL BILIRUBIN < 0.15 mg/dL (0.20-1.00); TOTAL PROTEIN 6.3 g/dL (6.3-8.3)
[2018-03-06] MEDS: SODIUM CHLORIDE 0.9% INJ SCH (06:16)
[2018-03-06] MEDS: LOVENOX SUBQ SCH (06:16)
[2018-03-06] MEDS: PROTONIX IV SCH (06:16)
[2018-03-06] MEDS: HUMALOG SUBQ SCH ×4 (06:17→21:39)
[2018-03-06 06:48] LABS: ALKALINE PHOSPHATASE 85 U/L (32-104)
--- NOTE | 2018-03-06 07:11 | Diag Imaging Result Doc PS360 ---
EXAM: CHEST-PORTABLE 03/06/2018 HISTORY: respiratory failure TECHNIQUE: AP portable at 0545 COMMENT: There is blunting of the left costophrenic angle. There has been no significant change since 03/05/2018. Compared to 03/04/2018 there has been clearing of the opacities in the right lower lobe. There may be a slight degree of residual interstitial edema. IMPRESSION: Minimal left pleural effusion. Mild interstitial pulmonary edema. Electronically signed by Kasi Collins 03/06/2018 7:09 AM
[2018-03-06] MEDS: INCRUSE ELLIPTA INH SCH (07:28)
[2018-03-06] MEDS: BREO ELLIPTA 100/25 MCG INH INH SCH (07:28)
[2018-03-06] MEDS: NEURONTIN PO SCH ×3 (08:16→16:16)
[2018-03-06] MEDS: PROCARDIA ER PO SCH (08:16)
[2018-03-06] MEDS: TRANDATE PO SCH ×2 (08:16→22:09)
[2018-03-06] MEDS: BUSPAR PO SCH ×2 (08:16→22:09)
[2018-03-06] MEDS: ASPIRIN EC PO SCH (08:16)
[2018-03-06] MEDS: VICON-C PO SCH (08:16)
[2018-03-06] MEDS: GLUCOPHAGE PO SCH ×2 (08:16→16:16)
[2018-03-06] MEDS: NICODERM PATCH TD SCH (08:17)
[2018-03-06] MEDS: JANUVIA PO SCH (08:17)
[2018-03-06] MEDS: ZANAFLEX PO SCH ×2 (08:17→22:09)
[2018-03-06] MEDS: CATAPRES PO SCH ×2 (08:17→22:09)
--- NOTE | 2018-03-06 12:50 | PROGRESS NOTE ---
DATE: 03/06/2018 SUBJECTIVE: The patient says she feels better. She would like to go to her room and get out of the unit. Her chest x-ray shows just minimal pulmonary edema. It looks like clinically she has improved. OBJECTIVE: Vital Signs: Temperature 97.4 degrees Fahrenheit, pulse 63 and regular, respirations 15, blood pressure 107/53. Her oxygen saturation is 92% on a mask. She is using BiPAP at night. HEENT: She is normocephalic. EOMS intact. PERRLA. Throat clear. Lungs: Sound fairly clear to auscultation with only occasional wheeze. Heart: Regular rate and rhythm without murmurs, gallops, or friction rubs. Abdomen: Soft. Active bowel sounds. No organomegaly or tenderness. Neurological: Intact grossly. LABORATORY DATA: Shows a white count yesterday of 9920, hemoglobin 5.2. Blood gas this morning shows a pH of 7.46, pCO2 of 56, PO2 of 57. That was done on BiPAP and on 40% FiO2. ASSESSMENT: 1. Chronic obstructive pulmonary disease exacerbation with acute respiratory failure. 2. History of breast cancer. PLAN: Will continue care. Pulmonology will come through to see her a little later today. Will leave it up to them about whether they think she is stable enough to move to the floor. cc: MD Carlos A Templeton Jr, MD
[2018-03-06] MEDS: ROCEPHIN 1 GM in NS 50 ML IV SCH (22:08)
[2018-03-06] MEDS: ADALAT CC PO SCH (22:08)
[2018-03-06] MEDS: ZOLOFT PO SCH (22:09)
[2018-03-06] MEDS: LOXITANE PO SCH (22:09)
[2018-03-06] MEDS: REMERON PO SCH (22:09)
[2018-03-07] MEDS: DUONEB (A & A) INH SCH ×6 (03:35→23:10)
[2018-03-07] MEDS: ROCEPHIN 1 GM in NS 50 ML IV SCH ×2 (03:39→21:55)
[2018-03-07] MEDS: SOLU-MEDROL IV SCH ×4 (03:39→21:55)
[2018-03-07 05:53] LABS: ALLEN TEST YES; BE 9.2 mmoll (-3.0-3.0); BLOOD TYPE ARTERIAL; METHB 0.6 % (0.0-1.5); O2(CT) 12.2 mL/dL (15.0-23.0); PO2(98.6) 58 mmHg (60-100); SAMPLE BLOOD; SAO2 90.8 % (95.0-100.0); THB 9.7 g/dL (11.5-17.4); pH(98.6) 7.42 (7.35-7.45)
[2018-03-07 05:56] LABS: MODALITY VENTIMASK; O2HB 89.4 % (95.0-99.0)
[2018-03-07] MEDS: HUMALOG SUBQ SCH ×4 (06:34→21:55)
[2018-03-07] MEDS: PROTONIX IV SCH (06:34)
[2018-03-07] MEDS: SODIUM CHLORIDE 0.9% INJ SCH (06:34)
[2018-03-07] MEDS: LOVENOX SUBQ SCH (06:35)
--- NOTE | 2018-03-07 07:12 | Diag Imaging Result Doc PS360 ---
EXAM: CHEST-PORTABLE 03/07/2018 HISTORY: respiratory failure TECHNIQUE: AP portable at 0523 COMMENT: Some improvement in the left pleural effusion is present compared to 03/06/2018. The lungs are not as well-expanded. Otherwise there has been no significant change. IMPRESSION: Improved left pleural effusion. Electronically signed by Kasi Collins 03/07/2018 7:09 AM
[2018-03-07 07:48] LABS: AGAP 14; ALB/GLOB RATIO 1.2; ALBUMIN 3.5 g/dL (3.5-5.0); ALKALINE PHOSPHATASE 97 U/L (32-104); BUN 30 mg/dL (8-22); CALCIUM 9.2 mg/dL (8.8-10.2); CHLORIDE 92 mmol/L (98-107); COSMO 286; CREATININE 0.9 mg/dL (0.5-0.9); ESTIMATED GFR > 60; GLUCOSE 139 mg/dL (70-104); GOT 21 U/L (10-30); GPT 34 U/L (10-36); POTASSIUM 4.6 mmol/L (3.5-5.1); SODIUM 139 mmol/L (136-145); TCO2 33 mmol/L (25-35); TOTAL BILIRUBIN 0.15 mg/dL (0.20-1.00); TOTAL PROTEIN 6.5 g/dL (6.3-8.3)
[2018-03-07] MEDS: CATAPRES PO SCH ×2 (09:20→21:54)
[2018-03-07] MEDS: JANUVIA PO SCH (09:20)
[2018-03-07] MEDS: ASPIRIN EC PO SCH (09:20)
[2018-03-07] MEDS: GLUCOPHAGE PO SCH ×2 (09:20→17:17)
[2018-03-07] MEDS: BUSPAR PO SCH ×2 (09:20→21:55)
[2018-03-07] MEDS: NEURONTIN PO SCH ×3 (09:20→17:17)
[2018-03-07] MEDS: NICODERM PATCH TD SCH (09:21)
[2018-03-07] MEDS: VICON-C PO SCH (09:21)
[2018-03-07] MEDS: ADALAT CC PO SCH ×2 (09:21→21:55)
[2018-03-07] MEDS: ZANAFLEX PO SCH ×2 (09:21→21:55)
[2018-03-07] MEDS: TRANDATE PO SCH ×2 (09:23→21:54)
--- NOTE | 2018-03-07 12:41 | PROGRESS NOTE ---
DATE: 03/07/2018 SUBJECTIVE: The patient is feeling a little bit better. She is still wheezing. She is hungry and does not like hospital food. OBJECTIVE: Vital Signs: Blood pressure 138/55, respirations 16, pulse 78, temperature 98.1 degrees Fahrenheit. Oxygen saturation is 94% with her mask. HEENT: She is normocephalic. EOMS intact. PERRLA. Throat clear. Lungs: Have scattered wheezes and rales. Heart: Regular rate and rhythm without murmurs, gallops, friction rubs. Abdomen: Soft. Active bowel sounds. No organomegaly or tenderness. Neurological: Intact grossly. ASSESSMENT: Exacerbation of chronic obstructive pulmonary disease and bronchitis. PLAN: Continue care. cc: MD Carlos A Templeton Jr, MD
[2018-03-07] MEDS: LOXITANE PO SCH (21:53)
[2018-03-07] MEDS: ZOLOFT PO SCH (21:54)
[2018-03-07] MEDS: REMERON PO SCH (21:55)
[2018-03-08] MEDS: DUONEB (A & A) INH SCH ×6 (03:25→23:12)
[2018-03-08] MEDS: TYLENOL PO PRN ×2 (03:35→09:48)
[2018-03-08 05:07] LABS: ALLEN TEST YES; BE 9.4 mmoll (-3.0-3.0); BLOOD TYPE ARTERIAL; HCO3-(ACT) 32.2 mmoll (20.0-26.0); METHB 0.3 % (0.0-1.5); O2(CT) 6.5 mL/dL (15.0-23.0); O2HB 90.8 % (95.0-99.0); PO2(98.6) 56 mmHg (60-100); SAMPLE BLOOD; SAO2 92.2 % (95.0-100.0); pH(98.6) 7.43 (7.35-7.45)
[2018-03-08 05:10] LABS: MODALITY VENTIMASK
[2018-03-08 05:11] LABS: PCO2(98.6) 52 mmHg (35-45)
--- NOTE | 2018-03-08 06:10 | Diag Imaging Result Doc PS360 ---
EXAM: CHEST-PORTABLE HISTORY: respiratory failure TECHNIQUE: Portable chest single view COMPARISON: 03/06/2018 FINDINGS: There is a small left pleural effusion. The heart is mildly prominent. Mild central vascular distention. Atelectasis is found at the left base. No consolidation. IMPRESSION: Mildly prominent heart with mild pulmonary edema Electronically signed by Sami Figueroa 03/08/2018 6:07 AM
[2018-03-08] MEDS: SOLU-MEDROL IV SCH ×3 (06:13→21:08)
[2018-03-08] MEDS: PROTONIX IV SCH (06:13)
[2018-03-08] MEDS: HUMALOG SUBQ SCH ×4 (06:13→22:21)
[2018-03-08] MEDS: LOVENOX SUBQ SCH (06:13)
[2018-03-08] MEDS: SODIUM CHLORIDE 0.9% INJ SCH (06:13)
[2018-03-08] MEDS: BREO ELLIPTA 100/25 MCG INH INH SCH ×2 (07:53→07:54)
[2018-03-08] MEDS: INCRUSE ELLIPTA INH SCH (07:54)
[2018-03-08 08:00] LABS: AGAP 15; ALBUMIN 3.3 g/dL (3.5-5.0); ALKALINE PHOSPHATASE 87 U/L (32-104); BUN 31 mg/dL (8-22); CALCIUM 9.7 mg/dL (8.8-10.2); CHLORIDE 92 mmol/L (98-107); COSMO 288; ESTIMATED GFR 56; GLUCOSE 203 mg/dL (70-104); GOT 19 U/L (10-30); GPT 29 U/L (10-36); POTASSIUM 4.7 mmol/L (3.5-5.1); SODIUM 138 mmol/L (136-145); TCO2 31 mmol/L (25-35); TOTAL BILIRUBIN < 0.15 mg/dL (0.20-1.00); TOTAL PROTEIN 6.6 g/dL (6.3-8.3)
[2018-03-08] MEDS: ZANAFLEX PO SCH ×2 (09:47→20:48)
[2018-03-08] MEDS: ADALAT CC PO SCH ×2 (09:47→20:48)
[2018-03-08] MEDS: NICODERM PATCH TD SCH (09:47)
[2018-03-08] MEDS: JANUVIA PO SCH (09:47)
[2018-03-08] MEDS: CATAPRES PO SCH ×2 (09:47→20:49)
[2018-03-08] MEDS: TRANDATE PO SCH ×2 (09:47→20:49)
[2018-03-08] MEDS: ASPIRIN EC PO SCH (09:47)
[2018-03-08] MEDS: NEURONTIN PO SCH ×3 (09:47→17:18)
[2018-03-08] MEDS: BUSPAR PO SCH ×2 (09:47→20:49)
[2018-03-08] MEDS: VICON-C PO SCH (09:47)
[2018-03-08] MEDS: GLUCOPHAGE PO SCH ×2 (09:48→17:17)
[2018-03-08 11:10] LABS: PCO2(98.6) 54 mmHg (35-45)
[2018-03-08] MEDS ORDERED: LASIX IV ONE (13:22)
--- NOTE | 2018-03-08 20:27 | PROGRESS NOTE ---
DATE: 03/08/2018 SUBJECT: 63-year-old white female moved out of the ICU for acute respiratory failure due to COPD and diastolic heart failure. Patient is receiving IV Lasix by Dr. Mckinley. She is off on BiPAP and slowly weaning off FiO2 currently on Ventimask off and on. Patient is anxious to go home. The patient was in the floor. REVIEW OF SYSTEMS: No complaints. EXAMINATION: Temperature is 98.6, pulse is 67, blood pressure is 128/63. She is on Ventimask.Chest: Poor air entry. Distant heart sounds. Belly is soft, nontender. No peripheral edema. Avalos was placed. I's and O's are negative yesterday 1.56 mL. LABS: CBC is none. SMA 7 sodium 138, potassium 4.7, chloride 92, BUN 31, creatinine 1.0, glucose 203, LFTs were normal. ABG pH is 7.43, pCO2 52, PO2 56, bicarb 32 on 50% Ventimask. Chest x-ray mild prominent heart with mild pulmonary edema. Telemetry monitoring sinus rhythm. ASSESSMENT AND PLAN: 1. Acute respiratory failure due to a combination of chronic obstructive pulmonary disease and congestive heart failure. Continue on IV Lasix today, daily x-rays. 2. Chronic obstructive pulmonary disease on intravenous steroids. Ceftriaxone, will decrease the IV steroids. 3. Elevated blood sugar due to steroids. 4. Continue to deep vein thrombosis, gastrointestinal prophylaxis. LEVEL OF DOCUMENTATION: 25 minutes. cc: MD Carlos A Cline MD
[2018-03-08] MEDS: ROCEPHIN 1 GM in NS 50 ML IV SCH (20:44)
[2018-03-08] MEDS: REMERON PO SCH (20:49)
[2018-03-08] MEDS: ZOLOFT PO SCH (20:49)
[2018-03-08] MEDS: LOXITANE PO SCH (20:49)
[2018-03-08 21:15] LABS: PCO2(98.6) 56 mmHg (35-45)
[2018-03-08 21:16] LABS: O2HB 89.8 % (95.0-99.0)
[2018-03-09] MEDS: DUONEB (A & A) INH SCH ×6 (03:15→23:00)
--- NOTE | 2018-03-09 03:24 | PULMONOLOGY PROGRESS NOTE ---
DATE: 03/08/2018 SUBJECTIVE: The patient is awake, alert and conversant. She remains on 50% Venturi mask but is anxious to go home. OBJECTIVE: Vital Signs: The patient has been afebrile for the last 24 hours. Blood pressure 128/63, heart rate 67, respiratory rate 16. Heent: Pupils are equal and reactive. Oropharynx is clear. Neck: Supple. Chest: Reveals prolonged expiratory phase with crackles in the lung bases. Cardiac: S1, S2. Abdomen: Soft without hepatosplenomegaly. Back: Reveals 1+ presacral edema. Extremities: Without cyanosis, clubbing or edema. LABORATORY DATA: Arterial blood gas this morning, pH 7.43, pCO2 of 52, PO2 of 56. Chemistry: Sodium 138, potassium 4.7, chloride 92, bicarbonate 31, BUN 31, creatinine 1.0, glucose 203. Chest x-ray reveals mildly prominent cardiac silhouette, mild vascular congestion, small left effusion. Microbiology reveals no new data. IMPRESSION: The patient is a 63-year-old with severe chronic obstructive pulmonary disease, ongoing tobacco use, chronic obstructive pulmonary disease exacerbation with community-acquired pneumonia. She has small effusions. She is currently improving, but continues to require significant amounts of oxygen. She needs to be mobilized with physical therapy. RECOMMENDATION: 1. Continue BiPAP and oxygen for acute respiratory failure. 2. Continue bronchial hygiene. 3. Continue antibiotics. 4. Encouraged smoking cessation. She reports she will no longer smoke when she is discharged. 5. Continue incentive spirometry. 6. Anticipate the need for rehab at the time of discharge. cc: MD Carlos A Sparks MD
[2018-03-09 06:08] LABS: ALLEN TEST YES; BE 11.9 mmoll (-3.0-3.0); BLOOD TYPE ARTERIAL; METHB 0.7 % (0.0-1.5); O2(CT) 16.1 mL/dL (15.0-23.0); O2HB 90.2 % (95.0-99.0); PO2(98.6) 61 mmHg (60-100); SAMPLE BLOOD; THB 12.7 g/dL (11.5-17.4); pH(98.6) 7.46 (7.35-7.45)
[2018-03-09 06:10] LABS: MODALITY VENTIMASK; PCO2(98.6) 53 mmHg (35-45)
[2018-03-09] MEDS: HUMALOG SUBQ SCH ×4 (06:35→20:10)
[2018-03-09] MEDS: LOVENOX SUBQ SCH (06:35)
[2018-03-09] MEDS: PROTONIX IV SCH (06:35)
--- NOTE | 2018-03-09 07:21 | Diag Imaging Result Doc PS360 ---
EXAM: CHEST-PORTABLE 03/09/2018 HISTORY: respiratory failure TECHNIQUE: AP portable at 0533 COMMENT: There is alveolar opacity in the left lower lobe with blunting of left costophrenic angle. This was also present at the time the previous study of 03/08/2018. IMPRESSION: Atelectasis versus pneumonia left lower lobe with left pleural effusion. Electronically signed by Kasi Collins 03/09/2018 7:19 AM
[2018-03-09 08:05] LABS: AGAP 16; ALB/GLOB RATIO 0.9; ALBUMIN 3.2 g/dL (3.5-5.0); ALKALINE PHOSPHATASE 83 U/L (32-104); BUN 33 mg/dL (8-22); CALCIUM 9.7 mg/dL (8.8-10.2); CHLORIDE 88 mmol/L (98-107); COSMO 281; CREATININE 0.9 mg/dL (0.5-0.9); ESTIMATED GFR > 60; GLUCOSE 170 mg/dL (70-104); GOT 24 U/L (10-30); GPT 25 U/L (10-36); POTASSIUM 4.8 mmol/L (3.5-5.1); SODIUM 135 mmol/L (136-145); TCO2 31 mmol/L (25-35); TOTAL BILIRUBIN < 0.15 mg/dL (0.20-1.00); TOTAL PROTEIN 6.7 g/dL (6.3-8.3)
[2018-03-09] MEDS: NICODERM PATCH TD SCH (09:24)
[2018-03-09] MEDS: TYLENOL PO PRN (09:24)
[2018-03-09] MEDS: ADALAT CC PO SCH ×2 (09:25→20:09)
[2018-03-09] MEDS: ZANAFLEX PO SCH ×2 (09:25→20:09)
[2018-03-09] MEDS: NEURONTIN PO SCH ×3 (09:25→21:26)
[2018-03-09] MEDS: ASPIRIN EC PO SCH (09:25)
[2018-03-09] MEDS: BUSPAR PO SCH ×2 (09:25→20:09)
[2018-03-09] MEDS: TRANDATE PO SCH ×2 (09:25→20:09)
[2018-03-09] MEDS: CATAPRES PO SCH ×2 (09:25→20:09)
[2018-03-09] MEDS: JANUVIA PO SCH (09:25)
[2018-03-09] MEDS: VICON-C PO SCH (09:25)
[2018-03-09] MEDS: SOLU-MEDROL IV SCH ×2 (09:26→20:09)
[2018-03-09] MEDS: GLUCOPHAGE PO SCH ×2 (09:26→16:52)
[2018-03-09] MEDS: INCRUSE ELLIPTA INH SCH (11:18)
[2018-03-09] MEDS: BREO ELLIPTA 100/25 MCG INH INH SCH (11:18)
[2018-03-09] MEDS: REMERON PO SCH (20:09)
[2018-03-09] MEDS: ROCEPHIN 1 GM in NS 50 ML IV SCH (20:09)
[2018-03-09] MEDS: ZOLOFT PO SCH (20:09)
[2018-03-09] MEDS: LOXITANE PO SCH (21:26)
--- NOTE | 2018-03-10 01:14 | PROGRESS NOTE ---
DATE: 03/09/2018 SUBJECTIVE: The patient is a little better on Ventimask lying in a position on the left side. PHYSICAL EXAMINATION: Vital Signs: Temperature is 98 degrees, pulse is 67, blood pressure 143/64. HEENT: Within normal limits. Neck: Supple. Chest: Poor air entry. Heart: Sounds are very distant. Abdomen: Belly is soft and nontender. Extremities: No peripheral edema. LABORATORY DATA: ABG: pH is 7.46, pCO2 of 53, PO2 of 61 on 50% Ventimask, slowly wean off to 3 L. SMA 7 is normal. LFTs were normal. Chest x-ray reported atelectasis or pleural effusion on the left side. ASSESSMENT AND PLAN: Acute respiratory failure due to chronic obstructive pulmonary disease and diastolic heart failure. Continue on intravenous Lasix, incentive spirometry, bronchodilators, intravenous antibiotics, deep venous thrombosis and gastrointestinal prophylaxis. as per order sheet. diabetes is stable. Blood pressure is stable. We will continue present treatment. Slowly improving asthma. Discussed nicotine cessation program. Up-to-date on influenza and pneumonia vaccine, and the patient was given instructions today on incentive spirometry and go to chest x-ray, PA and lateral view tomorrow. LEVEL OF DOCUMENTATION: 25 minutes. cc: MD Carlos A Cline MD MTDD
[2018-03-10] MEDS: DUONEB (A & A) INH SCH ×6 (02:40→23:10)
--- NOTE | 2018-03-10 04:42 | PULMONOLOGY PROGRESS NOTE ---
DATE: 03/09/2018 SUBJECTIVE: The patient is awake, alert, and conversant. She is anxious to go home. She continues to have a wet cough. OBJECTIVE: Vital Signs: The patient has been afebrile for the last 24 hours. Blood pressure 143/64, heart rate 67, respiratory rate 20, oxygen saturation 97%. HEENT: Pupils are equal and reactive. Oropharynx is clear. Neck: Supple. Chest: Reveals decreased breath sounds in the left base. Cardiac Examination: S1 and S2. Abdomen: Soft and without hepatosplenomegaly. Extremities: Without edema. Laboratories: Sodium 135, potassium 4.8, chloride 88, bicarbonate 31, BUN 33, creatinine 0.9, glucose 170. No recent CBC. Arterial blood gas this morning with pH of 7.46, pCO2 of 53, PO2 of 61 on 50% FiO2. Chest x-ray reveals continued pneumonia at the left base with small effusion. IMPRESSION: A 63-year-old with severe chronic obstructive pulmonary disease, ongoing tobacco use, chronic obstructive pulmonary disease exacerbation, and a community-acquired pneumonia. The patient clinically is improving but continues to have a wet cough and to require significant FiO2 to maintain current saturations. RECOMMENDATIONS: 1. Continue to cycle BiPAP and wean oxygen as tolerated for acute hypoxemic respiratory failure. 2. Continue to encourage patient to deep breathe, cough, and use incentive spirometer. 3. Continue current antibiotic regimen. 4. Encourage smoking cessation. 5. Anticipate the need for rehabilitation stay at the time of discharge. cc: MD Carlos A Sparks MD
[2018-03-10 05:57] LABS: ALLEN TEST YES; BE 13.5 mmoll (-3.0-3.0); BLOOD TYPE ARTERIAL; HCO3-(ACT) 35.3 mmoll (20.0-26.0); METHB 0.6 % (0.0-1.5); O2(CT) 11.7 mL/dL (15.0-23.0); PO2(98.6) 52 mmHg (60-100); SAMPLE BLOOD; SAO2 88.6 % (95.0-100.0); THB 9.6 g/dL (11.5-17.4); pH(98.6) 7.43 (7.35-7.45)
[2018-03-10 05:59] LABS: MODALITY VENTIMASK; O2HB 86.8 % (95.0-99.0); PCO2(98.6) 60 mmHg (35-45)
[2018-03-10] MEDS: HUMALOG SUBQ SCH ×6 (06:22→21:49)
[2018-03-10] MEDS: BREO ELLIPTA 100/25 MCG INH INH SCH (07:47)
[2018-03-10] MEDS: INCRUSE ELLIPTA INH SCH (07:48)
[2018-03-10 08:08] LABS: AGAP 10; ALB/GLOB RATIO 1.2; ALBUMIN 3.4 g/dL (3.5-5.0); ALKALINE PHOSPHATASE 101 U/L (32-104); BUN 35 mg/dL (8-22); CALCIUM 9.8 mg/dL (8.8-10.2); CHLORIDE 90 mmol/L (98-107); COSMO 280; CREATININE 0.8 mg/dL (0.5-0.9); ESTIMATED GFR > 60; GLUCOSE 129 mg/dL (70-104); GOT 14 U/L (10-30); GPT 19 U/L (10-36); POTASSIUM 4.3 mmol/L (3.5-5.1); SODIUM 135 mmol/L (136-145); TCO2 35 mmol/L (25-35); TOTAL BILIRUBIN < 0.15 mg/dL (0.20-1.00); TOTAL PROTEIN 6.3 g/dL (6.3-8.3)
--- NOTE | 2018-03-10 08:48 | Diag Imaging Result Doc PS360 ---
EXAM: CHEST-2 VIEWS INDICATION: pneumonia TECHNIQUE: 2 views COMPARISON: 03/09/2018 FINDINGS: There is better inspiration on the current study. Given the differences in inspiration, the small left basilar pleural effusion with adjacent atelectasis and/or infiltrate is essentially stable. There is minimal atelectasis at the right lung base that is similar to the previous study. No new consolidation is identified. Cardiac silhouette is stable. IMPRESSION: Better inspiration but essentially stable chest, otherwise. Electronically signed by Sabas Rice 03/10/2018 8:46 AM
[2018-03-10] MEDS: JANUVIA PO SCH (09:54)
[2018-03-10] MEDS: TRANDATE PO SCH ×2 (09:54→20:47)
[2018-03-10] MEDS: BUSPAR PO SCH ×2 (09:54→20:48)
[2018-03-10] MEDS: CATAPRES PO SCH ×2 (09:54→20:48)
[2018-03-10] MEDS: ADALAT CC PO SCH ×2 (09:54→20:48)
[2018-03-10] MEDS: DOXYCYCLINE PO SCH ×2 (09:54→20:48)
[2018-03-10] MEDS: ZANAFLEX PO SCH ×2 (09:54→20:48)
[2018-03-10] MEDS: NEURONTIN PO SCH ×3 (09:54→17:30)
[2018-03-10] MEDS: NICODERM PATCH TD SCH (09:54)
[2018-03-10] MEDS: SODIUM CHLORIDE 0.9% INJ SCH (09:55)
[2018-03-10] MEDS: GLUCOPHAGE PO SCH ×2 (09:55→17:27)
[2018-03-10] MEDS: LEVAQUIN PO SCH (09:55)
[2018-03-10] MEDS: PROTONIX IV SCH (09:55)
[2018-03-10] MEDS: LOVENOX SUBQ SCH (09:55)
[2018-03-10] MEDS: VICON-C PO SCH (09:55)
[2018-03-10] MEDS: SOLU-MEDROL IV SCH ×2 (09:55→20:48)
[2018-03-10] MEDS: ASPIRIN EC PO SCH (09:56)
[2018-03-10] MEDS: TYLENOL PO PRN (15:08)
[2018-03-10] MEDS: ZOLOFT PO SCH (20:47)
[2018-03-10] MEDS: REMERON PO SCH (20:48)
[2018-03-10] MEDS: PROTONIX PO SCH (20:48)
[2018-03-10] MEDS: LOXITANE PO SCH (20:48)
--- NOTE | 2018-03-11 03:06 | PROGRESS NOTE ---
DATE: 03/10/2018 SUBJECTIVE: The patient is a little better. Still on Ventimask. OBJECTIVE: General: Lying on the left side. Vital Signs: Temperature is 98 degrees. Pulse is 72. Slowly weaning off the Ventimask. Blood pressure is stable. HEENT: Within normal limits. Neck: Supple. Chest: Bilateral air entry. Distant heart sounds. Abdomen: Belly is soft, nontender. Neurologic: No obvious deficits noted. INVESTIGATIONS: ABG: pH is 7.3, pCO2 60, PO2 52. SMA-12 is normal. Sugar is 264. ASSESSMENT AND PLAN: 1. Chronic respiratory failure, underlying chronic obstructive pulmonary disease. Followup chest x-ray showed left lower lobe fluid or atelectasis or infiltrate. Continue incentive spirometry, early ambulation. The antibiotics have been changed to doxycycline and Levaquin. 2. Deep venous thrombosis and gastrointestinal prophylaxis. The patient is encouraged to ambulate, and incentive spirometry. Will follow up the x-ray in the morning. Discussed Social Service consult for LTAC placement. Will follow up. LEVEL OF DOCUMENTATION: 25 minutes. cc: MD Carlos A Cline MD
[2018-03-11] MEDS: DUONEB (A & A) INH SCH ×6 (03:15→23:01)
[2018-03-11 05:15] LABS: ALLEN TEST YES; BE 9.7 mmoll (-3.0-3.0); BLOOD TYPE ARTERIAL; HCO3-(ACT) 32.4 mmoll (20.0-26.0); METHB 0.9 % (0.0-1.5); O2(CT) 11.5 mL/dL (15.0-23.0); PO2(98.6) 60 mmHg (60-100); SAMPLE BLOOD; SAO2 91.9 % (95.0-100.0); THB 9.1 g/dL (11.5-17.4)
[2018-03-11 05:18] LABS: MODALITY CANNULA; O2HB 89.8 % (95.0-99.0); PCO2(98.6) 58 mmHg (35-45)
[2018-03-11] MEDS: HUMALOG SUBQ SCH ×4 (06:09→22:05)
[2018-03-11] MEDS: INCRUSE ELLIPTA INH SCH (08:15)
[2018-03-11] MEDS: BREO ELLIPTA 100/25 MCG INH INH SCH (08:15)
--- NOTE | 2018-03-11 09:10 | Diag Imaging Result Doc PS360 ---
EXAM: CHEST-2 VIEWS 03/11/2018 HISTORY: hypoxia TECHNIQUE: PA and lateral chest COMMENT: There is a left pleural effusion. There is ill-defined opacity in the left lower lobe and lingula. This was also the case on 03/10/2018 and is somewhat worse than on 03/09/2018. IMPRESSION: Atelectasis versus pneumonia in the left lower lobe and lingula with left pleural effusion. Electronically signed by Kasi Collins 03/11/2018 9:08 AM
[2018-03-11] MEDS: JANUVIA PO SCH (10:00)
[2018-03-11] MEDS: BUSPAR PO SCH ×2 (10:00→21:15)
[2018-03-11] MEDS: LEVAQUIN PO SCH (10:00)
[2018-03-11] MEDS: NEURONTIN PO SCH ×3 (10:00→16:38)
[2018-03-11] MEDS: CATAPRES PO SCH ×2 (10:00→21:16)
[2018-03-11] MEDS: GLUCOPHAGE PO SCH ×2 (10:00→16:38)
[2018-03-11] MEDS: VICON-C PO SCH (10:00)
[2018-03-11] MEDS: NICODERM PATCH TD SCH (10:00)
[2018-03-11] MEDS: DOXYCYCLINE PO SCH ×2 (10:00→21:16)
[2018-03-11] MEDS: SOLU-MEDROL IV SCH ×2 (10:00→21:16)
[2018-03-11] MEDS: ADALAT CC PO SCH ×2 (10:00→21:16)
[2018-03-11] MEDS: ZANAFLEX PO SCH ×2 (10:00→21:15)
[2018-03-11] MEDS: ASPIRIN EC PO SCH (10:00)
[2018-03-11] MEDS: LOVENOX SUBQ SCH (10:01)
[2018-03-11] MEDS: TRANDATE PO SCH ×2 (10:07→21:16)
[2018-03-11] MEDS: TYLENOL PO PRN (13:25)
[2018-03-11] MEDS: LOXITANE PO SCH (21:16)
[2018-03-11] MEDS: ZOLOFT PO SCH (21:16)
[2018-03-11] MEDS: REMERON PO SCH (21:16)
[2018-03-11] MEDS: PROTONIX PO SCH (21:16)
[2018-03-12] MEDS: DUONEB (A & A) INH SCH ×3 (03:09→11:22)
[2018-03-12 04:51] VITALS: BP 127/52
--- NOTE | 2018-03-12 05:02 | PROGRESS NOTE ---
DATE: 03/11/2018 SUBJECTIVE: The patient is out of bed. PHYSICAL EXAMINATION: She has a crackles in the left base slowly improving. Vitals are stable.HEENT: Within normal limits. Neck: Supple. Chest: Bilateral air entry. Crackles on the left base. Heart: Sounds are regular. Abdomen: Belly is soft and nontender. Good bowel sounds. No neurological deficits. INVESTIGATIONS: ABG: pH is 7.40, pCO2 58, PO2 60 on 36%. blood sugar 259. Blood cultures were negative. ASSESSMENT AND PLAN: Persistent left lower lobe infiltrate. Dr. Mckinley recommended CT of the thorax in the morning. Based on that, further recommendations will be followed. Slowly improving. Continue IV antibiotics and incentive spirometry. The patient is euvolemic. Based on the CT, we will follow up. DISPOSITION: The patient has a bed at the LTAC as per the social service agency director. LEVEL OF DOCUMENTATION: 15 minutes. cc: MD Carlos A Cline MD MTDD
[2018-03-12] MEDS: HUMALOG SUBQ SCH ×2 (06:12→11:05)
--- NOTE | 2018-03-12 06:41 | PULMONOLOGY PROGRESS NOTE ---
DATE: 03/11/2018 SUBJECTIVE: The patient reports she feels better. She has a cough, but has decreased sputum production. OBJECTIVE: Vital Signs: The patient has been afebrile for the last 24 hours. She has been transitioned to a nasal cannula. Blood pressure 136/60, heart rate 71, respiratory rate 18. HEENT: Pupils are equal and reactive. Oropharynx is clear. Neck: Supple. Chest: Reveals occasional rhonchi bilaterally, which do not clear with cough. Cardiac: S1-S2. Abdomen: Soft, and without hepatosplenomegaly. Extremities: Without edema. LABORATORIES: Chest x-ray reveals atelectasis versus infiltrate, left lower lobe and lingula, which may be slightly worse than 03/09/2018. IMPRESSION: A 63-year-old with severe chronic obstructive pulmonary disease, ongoing tobacco use, community-acquired pneumonia, with a COPD exacerbation. The patient has required significant oxygen for her acute hypoxemic respiratory failure. Clinically, she is improving, and her oxygen is being gradually weaned. RECOMMENDATIONS: 1. Continue to wean oxygen as tolerated. 2. Continue bronchial hygiene. 3. Continue antibiotic regimen. 4. Encourage smoking cessation. 5. CT scan of the thorax without contrast tomorrow. The patient has been in the hospital for 10 days, and continues to have significant radiographic abnormalities. cc: MD Carlos A Sparks MD
[2018-03-12 07:05] LABS: EOS# 0.02 X1000 (0.0-0.7); EOS% 0.1 % (0.0-10.0); HEMATOCRIT 31.4 % (37.0-47.0); IMM GRAN# 0.09 X1000 (0.0-0.04); IMM GRAN% 0.6 % (0.0-0.5); LYMPH# 1.49 X1000 (1.2-3.4); LYMPH% 10.2 % (20.5-51.1); MCHC 28.7 g/dL (33-37); MCV 80.1 FL (81-99); MONO# 0.62 X1000 (0.11-0.59); MONO% 4.2 % (1.7-9.3); MPV 8.8 FL (7.4-10.4); NEUT# 12.43 X1000 (1.4-6.5); NEUT% 84.9 % (42.2-75.2); PLT 490 X1000 (130-400); RBC 3.92 XMIL (4.2-5.4); RDW 19.6 % (11.5-14.5); WBC 14.65 X1000 (4.8-10.8)
[2018-03-12 07:21] LABS: AGAP 13; ALB/GLOB RATIO 1.1; ALBUMIN 3.3 g/dL (3.5-5.0); ALKALINE PHOSPHATASE 86 U/L (32-104); BUN 28 mg/dL (8-22); CALCIUM 9.5 mg/dL (8.8-10.2); CHLORIDE 93 mmol/L (98-107); COSMO 286; CREATININE 0.9 mg/dL (0.5-0.9); ESTIMATED GFR > 60; GLUCOSE 191 mg/dL (70-104); GOT 13 U/L (10-30); GPT 17 U/L (10-36); MAGNESIUM 1.3 mg/dL (1.5-2.7); PHOSPHORUS 4.7 mg/dL (2.7-4.5); POTASSIUM 4.2 mmol/L (3.5-5.1); SODIUM 138 mmol/L (136-145); TCO2 32 mmol/L (25-35); TOTAL BILIRUBIN 0.15 mg/dL (0.20-1.00); TOTAL PROTEIN 6.2 g/dL (6.3-8.3)
--- NOTE | 2018-03-12 07:32 | Diag Imaging Result Doc PS360 ---
CT THORAX W/O CONTRAST - 03/12/2018 INDICATION: persistent pneumonia COMPARISON: 08/09/2013 FINDINGS: There is moderate consolidation of the left lower lobe. There is slight increasing linear atelectasis or scarring in the right lower lobe. Stable hyperexpanded lungs with COPD. Heart size is borderline enlarged. Anemia is present. There is advanced calcified coronary artery disease. There is moderate, diffuse vascular disease of the aorta and its branches. Airways are clear. No mass or adenopathy. There are moderate degenerative changes of the spine. No acute or suspicious bony lesion. IMPRESSION: Advanced COPD. Consolidation of the left lower lobe compatible with pneumonia. Advanced coronary artery disease. This exam was performed using automated exposure control, adjustment of mA or kV according to patient size, and/or use of iterative reconstruction technique Electronically signed by Rishabh Javier 03/12/2018 7:30 AM
[2018-03-12] MEDS: BREO ELLIPTA 100/25 MCG INH INH SCH (07:54)
[2018-03-12] MEDS: INCRUSE ELLIPTA INH SCH (07:55)
[2018-03-12] MEDS ORDERED: MAGNESIUM SULFATE 2 GM/S.W.I. 2 GM/50 ML IVPB IV ONE (08:29)
[2018-03-12] MEDS ORDERED: PREVNAR 13 IM ONE (09:07)
--- NOTE | 2018-03-12 09:42 | DISCHARGE SUMMARY ---
ADMISSION DATE: 03/01/2018 DISCHARGE DATE: 03/12/2018 DISCHARGING DIAGNOSIS: Acute respiratory failure due to underlying chronic obstructive pulmonary disease with left lower lobe pneumonia. SECONDARY DIAGNOSES: 1. Left breast cancer stable since 1992. 2. Chronic tobacco abuse. 3. Depression with anxiety. 4. Type 2 diabetes. 5. Acid reflux disease. 6. Hypertension. 7. Hyperlipidemia. CONSULT: With Dr. Mckinley. PROCEDURES: Noninvasive BiPAP ventilator support. BRIEF HISTORY: Please see the H and P that was done by hospitalist on 03/01/2018. In brief, she is a 63-year-old white female with above problems admitted to the hospital with shortness of breath, cough, and wheezing. Chest x-ray showed persistent left lower lobe infiltrate with effusion and fluid. HOSPITAL COURSE IN ICU: She was retaining carbon dioxide, hypoxemia. Started on BiPAP machine with IV antibiotics, bronchodilators IV steroids and IV Lasix. I appreciated Dr. Mckinley's consult. Despite adequate bronchial toilet, she continues to have left lower lobe infiltrate. CT of the chest showed left lower lobe pneumonia. The patient is still requiring high FiO2 and decided to transfer to the LTAC in [place]. Chronic tobacco abuse. Nicotine cessation program was given. LABS: CBC: White cell count 14, hematocrit 31, platelets 490,000. ABG: pH is 7.40, pCO2 58, PO2 60 on 36%. SMA 12 is normal. Magnesium 1.3. The patient was given 2 g of magnesium before discharge. CT of the chest showed advanced COPD, consolidation of left lower lobe pneumonia. DISCHARGE INSTRUCTIONS: Oxygen 30%, BiPAP as needed. Pneumococcal vaccine 13 was given. Levaquin 500 daily for 10 days, metformin 1000 p.o. b.i.d., Prilosec 40 daily, vitamin B complex 1 tablet daily. Zoloft 150 daily, clonidine 0.3 p.o. b.i.d., Ventolin HFA as needed. Lipitor 100 p.o. b.i.d., Januvia 100 daily, tizanidine 4 p.o. b.i.d.. Incruse 1 puff daily, Breo 1 puff daily. Mirtazapine 30 mg daily, BuSpar 15 p.o. b.i.d., and nifedipine 60 p.o. b.i.d., aspirin 325 daily, Colace 100 p.o. b.i.d., loxapine 25 daily, gabapentin 600 t.i.d. and follow up in my office in 2 weeks. cc: MD Carlos A Cline MD James E. Boyle, MD
[2018-03-12] MEDS: LOVENOX SUBQ SCH (09:52)
[2018-03-12] MEDS: CATAPRES PO SCH (09:53)
[2018-03-12] MEDS: DOXYCYCLINE PO SCH (09:53)
[2018-03-12] MEDS: VICON-C PO SCH (09:53)
[2018-03-12] MEDS: LEVAQUIN PO SCH (09:53)
[2018-03-12] MEDS: NICODERM PATCH TD SCH (09:53)
[2018-03-12] MEDS: NEURONTIN PO SCH (09:53)
[2018-03-12] MEDS: TRANDATE PO SCH (09:53)
[2018-03-12] MEDS: SOLU-MEDROL IV SCH (09:53)
[2018-03-12] MEDS: ZANAFLEX PO SCH (09:53)
[2018-03-12] MEDS: ASPIRIN EC PO SCH (09:53)
[2018-03-12] MEDS: BUSPAR PO SCH (09:53)
[2018-03-12] MEDS: ADALAT CC PO SCH (09:53)
[2018-03-12] MEDS: GLUCOPHAGE PO SCH (09:53)
[2018-03-12] MEDS: JANUVIA PO SCH (09:53)
== END 2018-03-12 12:54 | DRG 189 ==
LOC: SUPCPDRO → ED 11:07 → EDIPHOLD 15:16 → ICU 03-02 16:59 → 3N 03-06 18:41
PROVIDERS: ADMIT Internal Medicine; ATTEND Internal Medicine
CPT/HCPCS: 51702; 71010; 71020; 71045; 71046; 71250; 80053; 80101; 80301; 80307; 80324; 80345; 80346; 80353; 80358; 80361; 80365; 81001; 82550; 82607; 82728; 82746; 82805; 82948; 83540; 83550; 83735; 83880; 83992; 84100; 84443; 84484; 85025; 85045; 87040; 90670; 94640; 94660; 94761; 94762; 94799; 96365; 96367; 96372; 96375; 96376; 97110; 97116; 97162; 97530; 99285; A9270; C9113; G0431; G0434; G0479; G0480; J0456; J0696; J1650; J1815; J1940; J2920; J2930; J3475; S0164; XXXXX